=== PATIENT | female | born 1965 | race Caucasian/White ===

== ENCOUNTER 2019-02-13 16:28 | Inpatient (IN) ==
[2019-02-13] MEDS ORDERED: NARCAN ONE ×2 (16:53→17:12)
[2019-02-13] MEDS ORDERED: NS 1,000 ML ONE ×2 (17:00→17:21)
[2019-02-13] MEDS ORDERED: ROMAZICON ONE (17:01)
[2019-02-13] MEDS ORDERED: DOPAMINE 800 MG/D5W 800 MG/500 ML IV.SOLN ONE (17:11)
[2019-02-13 17:16] LABS: HEMATOCRIT 36.4 % (37.0-47.0); HEMOGLOBIN 12.5 g/dL (12.0-16.0); MCV 87.3 FL (81-99); RBC 4.17 XMIL (4.2-5.4); WBC 16.98 X1000 (4.8-10.8)
[2019-02-13 17:17] LABS: BASO# 0.04 X1000 (0.0-0.2); BASO% 0.2 % (0.0-0.8); EOS# 0.06 X1000 (0.0-0.7); EOS% 0.4 % (0.0-10.0); IMM GRAN# 0.13 X1000 (0.0-0.04); IMM GRAN% 0.8 % (0.0-0.5); LYMPH# 2.96 X1000 (1.2-3.4); LYMPH% 17.4 % (20.5-51.1); MCHC 34.3 g/dL (33-37); MONO# 1.69 X1000 (0.11-0.59); MPV 10.9 FL (7.4-10.4); NEUT% 71.2 % (42.2-75.2); PLT 266 X1000 (130-400); RDW 13.4 % (11.5-14.5)
[2019-02-13] MEDS ORDERED: NARCAN IV ONE ×2 (17:18→17:19)
[2019-02-13] MEDS ORDERED: ROMAZICON IV ONE (17:19)
[2019-02-13 17:20] LABS: INR 1.11; PROTIME 14.5 Seconds (11.0-16.0); PTT 28.8 Seconds (22.3-41.8)
[2019-02-13] MEDS ORDERED: NS 1,000 ML IV ONE ×2 (17:20→17:23)
[2019-02-13] MEDS ORDERED: QUELICIN IV ONE (17:24)
[2019-02-13] MEDS ORDERED: AMIDATE IV ONE (17:25)
[2019-02-13 17:29] LABS: ALLEN TEST NO; BE 2.3 mmoll (-3.0-3.0); BLOOD TYPE ARTERIAL; HCO3-(ACT) 26.6 mmoll (20.0-26.0); O2(CT) 14.3 mL/dL (15.0-23.0); O2HB 93.1 % (95.0-99.0); PCO2(98.6) 38 mmHg (35-45); PO2(98.6) 70 mmHg (60-100); SAMPLE BLOOD; SAO2 93.9 % (95.0-100.0); THB 10.9 g/dL (11.5-17.4); pH(98.6) 7.45 (7.35-7.45)
[2019-02-13] MEDS ORDERED: QUELICIN ONE (17:30)
[2019-02-13] MEDS ORDERED: AMIDATE ONE (17:30)
[2019-02-13] MEDS ORDERED: DOPAMINE 800 MG/D5W 800 MG/500 ML IV.SOLN IV SCH ×2 (17:30→23:15)
[2019-02-13 17:33] LABS: MODALITY NRB
--- NOTE | 2019-02-13 17:33 | Diag Imaging Result Doc PS360 ---
EXAM: CHEST-PORTABLE INDICATION: ams, cyanosis TECHNIQUE: One view COMPARISON: 11/08/2018 FINDINGS: There are diffuse airspace infiltrates bilaterally suggesting edema and possibly ARDS. There is no discrete pleural fluid collection or pneumothorax. Cardiac silhouette is grossly unremarkable as imaged. IMPRESSION: Diffuse infiltrates bilaterally suggesting pulmonary edema. ARDS cannot be excluded. Electronically signed by Carl Campos 02/13/2019 5:31 PM
[2019-02-13] MEDS ORDERED: VERSED IV ONE ×3 (17:37→19:57)
[2019-02-13] MEDS ORDERED: VANCOMYCIN 1 GM/NS 1 GM/250 ML IVPB IV ONE (17:40)
[2019-02-13] MEDS ORDERED: MAXIPIME 2 GM/NS 2 GM/100 ML IVPB IV ONE (17:41)
[2019-02-13 17:44] LABS: ALB/GLOB RATIO 1.4; CALCIUM 8.4 mg/dL (8.8-10.2); TOTAL BILIRUBIN 0.57 mg/dL (0.20-1.00); TOTAL PROTEIN 6.8 g/dL (6.3-8.3)
[2019-02-13] MEDS ORDERED: VERSED ONE ×2 (17:45→18:31)
[2019-02-13] MEDS ORDERED: VERSED 100 MG in NS 80 ML IV SCH ×2 (17:45→18:00)
[2019-02-13 17:46] LABS: POTASSIUM 2.4 mmol/L (3.5-5.1)
[2019-02-13] MEDS ORDERED: NS + KCL 20 MEQ 1,000 ML IV ONE ×2 (17:50→17:53)
[2019-02-13] MEDS ORDERED: LEVOPHED 8 MG in D5 1/2 NS 250 ML IV SCH (18:00)
--- NOTE | 2019-02-13 18:03 | PROVIDER DOCUMENTATION ---
This chart was entered by Virginia Lynn Scribe, acting as scribe for Juan Carlos Lackey MD. HPI-Psychological Disorder - General Source: patient, EMS, RN notes reviewed - History of Present Illness-Psych Onset/Duration: reports: just prior to arrival Timing: reports: still present Severity: reports: moderate Situational problems related to:: reports: N/A Psychiatric Complaints: reports: paranoid Substance Use: reports: amphetamines (meth) Previous psych related hospitalizations?: Yes Patient arrived by:: EMS called by spouse/family Similar Symptoms Previously?: Yes Recently seen or treated by another doctor?: No <Juan Carlos Lackey - Last Filed: 02/13/19 18:51> <Kip Cabrera - Last Filed: 02/13/19 20:39> - General Chief Complaint: Altered Mental Status Stated Complaint: FALL/PSYCH Time Seen by Provider: 02/13/19 16:45 Allergies/Adverse Reactions: Patient Allergies Allergy/AdvReac Type Severity Reaction Status Date / Time No Known Allergies Allergy Verified 02/13/19 19:52 Home Medications: Home Medication List Medication Instructions Recorded Confirmed Last Taken Type Unobtainable [Home Meds 02/13/19 02/13/19 Unknown History Unobtainable] - History of Present Illness-Psych Nature of Presenting Problem: 53 y/o female presents to ED for psych eval. Pt was sent to ED via EMS from urgent care after describing her paranoia to the staff there. Pt was placed in the psych pod upon ED arrival and fell while in the bathroom. Nursing staff reports she had snoring respirations, skin turned blue, and she was incontinent of urine. O2 sats were in the 50s upon movement to the trauma room. Sats improved to low 90s on nonrebreather. Pt given 2 of Narcan in room. Pt states she relapsed today and admits to methamphetamine use. Pt is alert and talking. (Juan Carlos Lackey) Review of Systems - Adult - REVIEW OF SYSTEMS - ADULT Constitutional: denies: chills, fever Eyes: reports: no symptoms reported Ears, Nose, Mouth & Throat: reports: no symptoms reported Cardiovascular: denies: chest pain, palpitations Respiratory: reports: see HPI, other (snoring respirations) Gastrointestinal: reports: no symptoms reported Genitourinary: reports: no symptoms reported Musculoskeletal: reports: no symptoms reported Integumentary: reports: no symptoms reported Neurological: reports: no symptoms reported Psychiatric: reports: other (paranoia). denies: suicidal thoughts Endocrine: reports: no symptoms reported Hematologic/Lymphatic: reports: no symptoms reported Allergic/Immunologic: reports: no symptoms reported All Other Systems: Reviewed and Negative <Juan Carlos Lackey - Last Filed: 02/13/19 18:51> Past History - Adult - PAST MEDICAL HISTORY-ADULT Review of Records: reports: Old Records Reviewed, Nursing Assessment Review, Medications Reviewed Major Childhood Illnesses: reports: denies history Cardiovascular: reports: HTN, hyperlipidemia Respiratory: reports: COPD Gastrointestinal: reports: GERD, hepatitis (C) Obstetrical/Gynecological: reports: PID/STD, other (hx of tubal ligation and cervical ablation) Genitourinary: reports: retention Musculoskeletal: reports: arthritis, chronic pain Neurological: reports: CVA, Seizures/Epilepsy Psychiatric: reports: anxiety, bipolar, depression, psychiatric problems, other (panic attacks) Endocrine/Immune: reports: RA Other Conditions: reports: denies history - PRIOR SURGERIES/PROCEDURES Surgical/Procedure History: reports: BTL, other (cervical dysplasia; wisdom teeth extractions) - PRIOR HOSPITALIZATIONS Prior Hospitalizations: reports: for other non-related - IMMUNIZATION STATUS Childhood Immunizations: See Nurse Assessment Flu Vaccine: See Nurse Assessment - FAMILY HISTORY Family History: reviewed, not pertinent - SOCIAL HISTORY Smoking: less than 1 pack/day Provider spent 3-5 mins advising pt. on dangers of tobacco.: Discussed manners to quit use, and f/u contacts for add'l counseling. Substance Use: amphetamines (meth) Alcohol Use Frequency: every day Number of drinks per typical drinking period:: 3-4 drinks Living Situation: family <Juan Carlos Lackey - Last Filed: 02/13/19 18:51> Physical Exam-Psych Focus - Physical Exam-Psych Initial Vital Signs Reviewed: Yes (O2 sats in the 50s initially; improved to low 90s on nonrebreather) Appearance: no apparent distress, no memory impairment, alert Neurological: normal mood/affect, calm Behavior/Eye Contact/Speech: good eye contact Thoughts/Hallucinations: normal thought pattern, no apparent hallucination HENMT: normocephalic/atraumatic, moist mucous membranes Respiratory: lungs clear, normal breath sounds Cardiovascular: normal peripheral pulses, regular rate, rhythm Extremity: normal range of motion, non-tender Integumentary: normal color, warm/dry <Juan Carlos Lackey - Last Filed: 02/13/19 18:51> Progress - PLAN OF CARE/RESULTS Result Diagrams: 02/13/19 16:47 02/13/19 16:47 - EKG 1 Time of EKG reading by physician:: 16:53 EKG Read and Signed by:: Juan Carlos Lackey EKG Interpretation (*Must complete 3 of following elements*): Normal Rate: 74 Rhythm: NSR [place]: normal QRS: normal SD Interval: normal ST Wave: normal - XRAY 1 XRAY Study: Chest Impression: See EMR Report - CT/MRI 1 CT Study: Cervical Spine, Head Impression: See EMR Report - CHANGE OF SHIFT REPORT (ED Provider) 1 Report Given and Care Transferred to:: Dr Cabrera Time of Transfer: 19:00 Items Pending: Labs, CT/MRI Results <Juan Carlos Lackey - Last Filed: 02/13/19 18:51> - PLAN OF CARE/RESULTS Result Diagrams: 02/13/19 16:47 02/13/19 16:47 - CONSULTS/PCP/HOSPITALIST Notification #1 *Consult/PCP/Hospitalist*: Jim Time Discussed: 20:30 Consult Disposition: Will see in ED, Admit <Kip Cabrera - Last Filed: 02/13/19 20:39> - PLAN OF CARE/RESULTS Progress/Plan/Lab Results: Vital Signs - 8 hr 02/13/19 16:42 02/13/19 17:01 02/13/19 17:25 Temperature 97.2 F L Pulse Rate 78 69 79 Respiratory Rate 20 30 H 29 H Blood Pressure 125/63 78/54 82/46 O2 Sat by Pulse Oximetry 97 87 L 84 L 02/13/19 17:30 02/13/19 17:45 02/13/19 17:52 Temperature Pulse Rate 92 H 99 H Respiratory Rate 26 H 31 H Blood Pressure 119/61 118/52 O2 Sat by Pulse Oximetry 90 L 93 L 93 L 02/13/19 18:00 Temperature Pulse Rate 94 H Respiratory Rate 19 Blood Pressure 113/53 O2 Sat by Pulse Oximetry 91 L Laboratory Results - last 24 hr 02/13/19 02/13/19 02/13/19 16:47 16:47 16:47 WBC 16.98 H RBC 4.17 L Hgb 12.5 Hct 36.4 L MCV 87.3 MCH 30.0 MCHC 34.3 RDW Std Deviation 13.4 Plt Count 266 MPV 10.9 H Immature Gran % (Auto) 0.8 H Neut % (Auto) 71.2 Lymph % (Auto) 17.4 L Alexander % (Auto) 10.0 H Eos % (Auto) 0.4 Baso % (Auto) 0.2 Immature Gran # (Auto) 0.13 H Neut # (Auto) 12.10 H Lymph # (Auto) 2.96 Alexander # (Auto) 1.69 H Eos # (Auto) 0.06 Baso # (Auto) 0.04 PT INR PTT (Actin FS) Specimen Type Sample Site pH pCO2 pO2 HCO3 Base Excess Oxyhemoglobin ABG O2 Sat (Calculated) ABG O2 Saturation ABG Carboxyhemoglobin ABG Methemoglobin Angel Test A-a O2 Difference Total Hemoglobin Lactate Liter Flow Blood Gas Modality FiO2 % Sodium 129 L Potassium 2.4 L* Chloride 82 L Carbon Dioxide 24 L Anion Gap 23 BUN 23 H Creatinine 2.0 H Estimated GFR/1.73 m2 26 BUN/Creatinine Ratio 12 Glucose 175 H POC Glucose Calculated Osmolality 267 Calcium 8.4 L Phosphorus Magnesium Total Bilirubin 0.57 AST 59 H ALT 55 H Alkaline Phosphatase 108 H Creatine Kinase 374 H Creatine Kinase Index 1.9 CK-MB (CK-2) 7.23 H Troponin T Sgk-[id number]-Tcazyajifrz Pept Total Protein 6.8 Albumin 4.0 Globulin 2.8 Albumin/Globulin Ratio 1.4 Plasma Lactate Plasma/Serum Ethyl Alc 02/13/19 02/13/19 02/13/19 16:47 16:47 16:47 WBC RBC Hgb Hct MCV MCH MCHC RDW Std Deviation Plt Count MPV Immature Gran % (Auto) Neut % (Auto) Lymph % (Auto) Alexander % (Auto) Eos % (Auto) Baso % (Auto) Immature Gran # (Auto) Neut # (Auto) Lymph # (Auto) Alexander # (Auto) Eos # (Auto) Baso # (Auto) PT 14.5 INR 1.11 PTT (Actin FS) 28.8 Specimen Type Sample Site pH pCO2 pO2 HCO3 Base Excess Oxyhemoglobin ABG O2 Sat (Calculated) ABG O2 Saturation ABG Carboxyhemoglobin ABG Methemoglobin Angel Test A-a O2 Difference Total Hemoglobin Lactate Liter Flow Blood Gas Modality FiO2 % Sodium Potassium Chloride Carbon Dioxide Anion Gap BUN Creatinine Estimated GFR/1.73 m2 BUN/Creatinine Ratio Glucose POC Glucose Calculated Osmolality Calcium Phosphorus Magnesium Total Bilirubin AST ALT Alkaline Phosphatase Creatine Kinase Creatine Kinase Index CK-MB (CK-2) Troponin T 0.050 Egy-U-Ddmtzdjysjw Pept 28091 H Total Protein Albumin Globulin Albumin/Globulin Ratio Plasma Lactate Plasma/Serum Ethyl Alc 02/13/19 02/13/19 02/13/19 16:47 16:55 17:10 WBC RBC Hgb Hct MCV MCH MCHC RDW Std Deviation Plt Count MPV Immature Gran % (Auto) Neut % (Auto) Lymph % (Auto) Alexander % (Auto) Eos % (Auto) Baso % (Auto) Immature Gran # (Auto) Neut # (Auto) Lymph # (Auto) Alexander # (Auto) Eos # (Auto) Baso # (Auto) PT INR PTT (Actin FS) Specimen Type Sample Site pH pCO2 pO2 HCO3 Base Excess Oxyhemoglobin ABG O2 Sat (Calculated) ABG O2 Saturation ABG Carboxyhemoglobin ABG Methemoglobin Angel Test A-a O2 Difference Total Hemoglobin Lactate Liter Flow Blood Gas Modality FiO2 % Sodium Potassium Chloride Carbon Dioxide Anion Gap BUN Creatinine Estimated GFR/1.73 m2 BUN/Creatinine Ratio Glucose POC Glucose 188 H D Calculated Osmolality Calcium Phosphorus 3.5 Magnesium 2.5 Total Bilirubin AST ALT Alkaline Phosphatase Creatine Kinase Creatine Kinase Index CK-MB (CK-2) Troponin T Kkw-Z-Ahgawqvmkqv Pept Total Protein Albumin Globulin Albumin/Globulin Ratio Plasma Lactate 6.9 H* Plasma/Serum Ethyl Alc 02/13/19 17:15 WBC RBC Hgb Hct MCV MCH MCHC RDW Std Deviation Plt Count MPV Immature Gran % (Auto) Neut % (Auto) Lymph % (Auto) Alexander % (Auto) Eos % (Auto) Baso % (Auto) Immature Gran # (Auto) Neut # (Auto) Lymph # (Auto) Alexander # (Auto) Eos # (Auto) Baso # (Auto) PT INR PTT (Actin FS) Specimen Type ARTERIAL Sample Site L BRACHIAL pH 7.45 pCO2 38 pO2 70 HCO3 26.6 H Base Excess 2.3 Oxyhemoglobin 93.1 L ABG O2 Sat (Calculated) 14.3 L ABG O2 Saturation 93.9 L ABG Carboxyhemoglobin 0.80 ABG Methemoglobin 0.0 Angel Test NO A-a O2 Difference 596.0 Total Hemoglobin 10.9 L Lactate 5.00 H* Liter Flow 15.0 Blood Gas Modality NRB FiO2 % 100.0 Sodium Potassium Chloride Carbon Dioxide Anion Gap BUN Creatinine Estimated GFR/1.73 m2 BUN/Creatinine Ratio Glucose POC Glucose Calculated Osmolality Calcium Phosphorus Magnesium Total Bilirubin AST ALT Alkaline Phosphatase Creatine Kinase Creatine Kinase Index CK-MB (CK-2) Troponin T Ozu-I-Ctvkfuekijj Pept Total Protein Albumin Globulin Albumin/Globulin Ratio Plasma Lactate Plasma/Serum Ethyl Alc Orders Category Date Time Status Cardiac Monitoring DIRECTED Care 02/13/19 16:54 Active Finger Stick Blood Sugar (ED) DIRECTED Care 02/13/19 16:54 Active Lopez Cath Insertion ORDERED Care 02/13/19 18:40 Active IV Insertion ORDERED Care 02/13/19 18:07 Active Notify MD of + Sepsis Screen NOW Care 02/13/19 18:07 Active Notify Physician As Ordered Care 02/13/19 18:07 Active Oxygen Therapy- ED Nursing DIRECTED Care 02/13/19 16:54 Active Saline Loc NOW Care 02/13/19 16:54 Active CHEST-PORTABLE [RAD] Stat Exams 02/13/19 16:54 Completed CHEST-PORTABLE [RAD] Stat Exams 02/13/19 17:[address] HEAD/C-SPINE W/O CONTRAST [CT] Stat Exams 02/13/19 16:58 Completed ABG [RESP] Routine Lab 02/13/19 17:15 Completed ALCOHOL BLOOD Stat Lab 02/13/19 16:47 Completed BLOOD CULTURE [BLDCUL] Stat Lab 02/13/19 17:55 Results CBC WITH ELECTRONIC DIFF [HEME] Stat Lab 02/13/19 16:47 Completed CK PROFILE [SP CHEM] Stat Lab 02/13/19 16:47 Completed COMPREHENSIVE METABOLIC PANEL [CHEM] Stat Lab 02/13/19 16:47 Completed LACTATE, PLASMA [CHEM] Lab 02/13/19 20:00 Uncollected LACTATE, PLASMA [CHEM] Lab 02/13/19 23:00 Uncollected LACTATE, PLASMA [CHEM] Stat Lab 02/13/19 17:10 Completed MAGNESIUM [CHEM] Stat Lab 02/13/19 16:47 Completed PRO B-NATRIURETIC PEPTIDE Stat Lab 02/13/19 16:47 Completed PROTIME WITH INR [COAG] Stat Lab 02/13/19 16:47 Completed PTT [COAG] Stat Lab 02/13/19 16:47 Completed TROPONIN T Stat Lab 02/13/19 16:47 Completed URINALYSIS [URINALYSIS] Stat Lab 02/13/19 20:30 Ordered URINE DRUG SCREEN Stat Lab 02/13/19 20:30 Ordered phos [PHOSPHORUS] [CHEM] Stat Lab 02/13/19 16:47 Completed 0.9% Sodium Chloride Inj [Ns] 1,000 ml Med 02/13/19 17:00 Discontinued .ROUTE As directed 0.9% Sodium Chloride Inj [Ns] 1,000 ml Med 02/13/19 17:21 Discontinued .ROUTE As directed 0.9% Sodium Chloride Inj [Ns] 1,000 ml Med 02/13/19 17:20 Discontinued IV 999 mls/hr 0.9% Sodium Chloride Inj [Ns] 1,000 ml Med 02/13/19 17:23 Discontinued IV 999 mls/hr 0.9% Sodium Chloride Inj [Ns] 80 ml Med 02/13/19 18:00 Active Midazolam [Versed] 100 mg IV As Directed mls/hr CefEPIME 2 GM/NS [Maxipime 2 gm/Ns] Med 02/13/19 17:41 Discontinued 2 gm in 100 ml IV NOW Dextrose 5%-0.45% NaCl Inj [D5 1/2 Ns] 250 ml Med 02/13/19 18:00 Discontinued Norepinephrine [Levophed] 8 mg IV As Directed mls/hr Dopamine 800 mg/D5w Med 02/13/19 17:11 Discontinued 800 mg in 500 ml .ROUTE As directed Dopamine 800 mg/D5w Med 02/13/19 17:30 Active 800 mg in 500 ml IV As Directed mls/hr Etomidate [Amidate] Med 02/13/19 17:25 Discontinued 20 mg IV NOW ONE Etomidate [Amidate] Med 02/13/19 17:30 Discontinued 40 mg .ROUTE .STK-MED ONE Flumazenil [Romazicon] Med 02/13/19 17:19 Discontinued 0.2 mg IV NOW ONE Flumazenil [Romazicon] Med 02/13/19 17:01 Discontinued 0.5 mg .ROUTE .STK-MED ONE Midazolam [Versed] Med 02/13/19 17:37 Discontinued 2 mg IV NOW ONE Midazolam [Versed] Med 02/13/19 19:57 Discontinued 2 mg IV NOW ONE Midazolam [Versed] Med 02/13/19 17:37 Discontinued 3 mg IV NOW ONE Midazolam [Versed] Med 02/13/19 17:45 Discontinued 5 mg .ROUTE .STK-MED ONE Midazolam [Versed] Med 02/13/19 18:31 Discontinued 5 mg .ROUTE .STK-MED ONE Naloxone [Narcan] Med 02/13/19 17:19 Discontinued 1 mg IV NOW ONE Naloxone [Narcan] Med 02/13/19 16:53 Discontinued 2 mg .ROUTE .STK-MED ONE Naloxone [Narcan] Med 02/13/19 17:12 Discontinued 2 mg .ROUTE .STK-MED ONE Naloxone [Narcan] Med 02/13/19 17:18 Discontinued 2 mg IV NOW ONE Ns + KCl 20 Meq 1,000 ml Med 02/13/19 17:50 Discontinued IV 500 mls/hr Ns + KCl 20 Meq 1,000 ml Med 02/13/19 17:53 Discontinued IV 500 mls/hr Succinylcholine [Quelicin] Med 02/13/19 17:24 Discontinued 100 mg IV NOW ONE Succinylcholine [Quelicin] Med 02/13/19 17:30 Discontinued 200 mg .ROUTE .STK-MED ONE Vancomycin 1 gm/Ns Med 02/13/19 17:40 Discontinued 1 gm in 250 ml IV NOW Altered Mental Status Stat Oth 02/13/19 16:52 Ordered CP/SOB/Palp >45 yrs of Age Stat Oth 02/13/19 16:52 Ordered Ventilator Order Stat Oth 02/13/19 17:54 Active EKG [EKG] Stat Ther 02/13/19 16:54 Ordered Procedures - INTUBATION Time of Intubation: 17:31 (Pt intubated by Dr. Tabor. O2 sats improved to mid 90s.) Mallampati Class: 1 Intubation Method: orotracheal Equipment: ETT, Glidescope Tube Size (cm): 7.5 Pretreated with 100% Oxygen?: Yes Breath Sounds after Intubation: equal ETT Primary Tube Confirmation: Capnometry CO2 Change, Direct Visualization, Chest Rise and Fall, Tube placement verified on XRAY Intubation Complications: no complications Vent Settings: See Respiratory Therapy Notes Procedure Comment: 20 of etomidate at 1729. 100 of succ at 1731. 21 at the lip. <Juan Carlos Lackey - Last Filed: 02/13/19 18:51> Departure - Departure Date of Disposition Decision: 02/13/19 Certified Medical Emergency: Emergent - Critical Care Note This patient required my direct & personal management of CC.: Yes Total Time (mins): 60 Critical Care Statement: This patient required my direct personal management to treat or rule out processes, the absence of which, could potentiallly result in sudden, clinically significant life or limb threatening deterioration. <Juan Carlos Lackey - Last Filed: 02/13/19 18:51> - Departure Time of Disposition Decision: 15:00 <Kip Cabrera - Last Filed: 02/13/19 20:39> - Departure DIAGNOSIS: ARDS (adult respiratory distress syndrome), CHF (congestive heart failure), Sepsis, Hyponatremia, Renal insufficiency, Hypokalemia Disposition: ADMITTED INPATIENT 09 Condition: Serious Discharge Education: Steps to Quit Smoking, [id number]-je-Zrvg, Finding Treatment for Addiction, Stimulant Use Disorder-Methamphetamines Attestation - Physician/ [place] Attestation Patient care was provided by Advanced Practice Provider:: No The physician spent face to face time with patient:: Yes Advanced Practice Provider documentation review:: Supervising physician onsite and consulted in the evaluation and care of this patient. The physician did have a face to face encounter with the patient. <Juan Carlos Lackey - Last Filed: 02/13/19 18:51> This chart was documented by the indicated scribe, (Virginia Lynn Scribe) and accurately reflects the services I performed and decisions made by me, Juan Carlos Lackey MD, as attested by the provider's signature.
[2019-02-13 18:04] LABS: CK INDEX 1.9 (0.0-2.5); CK-MB 7.23 ng/mL (0.0-5.0)
--- NOTE | 2019-02-13 19:08 | Diag Imaging Result Doc PS360 ---
EXAM: CT HEAD/C-SPINE W/O CONTRAST INDICATION: fall, AMS TECHNIQUE: This exam was performed using automated exposure control, adjustment of mA or kV according to patient size, and/or use of iterative reconstruction technique. COMPARISON: CT head dated 10/16/2017 FINDINGS: Head: There is no definite acute infarct given the limited sensitivity of CT versus MRI. There is no discrete intracranial mass, mass effect, or intracranial hemorrhage. The surrounding soft tissues are essentially unremarkable. The calvaria is intact. C-spine: There is fairly advanced degenerative disc disease at C5-6 and C6-7 and milder degenerative disc disease at a couple of other cervical levels. There is also facet arthropathy at several levels, most significant at C2-3 and C3-4 on the left. This causing varying degrees of neuroforaminal narrowing and milder central canal narrowing at several levels. Otherwise, there is no discrete fracture, subluxation, or intrinsic osseous lesion. There are dense infiltrates seen at the lung apices. Consider severe edema or ARDS. The patient is intubated. Surrounding soft tissues are essentially unremarkable, otherwise. IMPRESSION: 1.No evidence of acute intracranial pathology. 2.Multilevel degenerative arthropathy but no evidence of fracture or other definite acute C-spine injury. 3.Severe airspace infiltrates at the lung apices as described. Electronically signed by Carl Campos 02/13/2019 7:06 PM
--- NOTE | 2019-02-13 19:14 | Diag Imaging Result Doc PS360 ---
EXAM: CHEST-PORTABLE INDICATION: post intubation TECHNIQUE: One view COMPARISON: 02/13/2019 FINDINGS: There has been interval intubation. The tip of the ET tube projects over the trachea and above the amie at about the T4 level. Diffuse bilateral airspace infiltrates are essentially unchanged. Cardiac silhouette is stable. IMPRESSION: Interval intubation as described. Stable chest, otherwise. Electronically signed by Carl Campos 02/13/2019 7:12 PM
[2019-02-13 19:55] LABS: MAGNESIUM 2.5 mg/dL (1.5-2.7); PHOSPHORUS 3.5 mg/dL (2.7-4.5)
[2019-02-13 20:47] LABS: URINE SOURCE CLEAN CATCH
[2019-02-13 20:54] LABS: BILIRUBIN URINE NEGATIVE (NEGATIVE); BLOOD URINE NEGATIVE (NEGATIVE); COLOR YELLOW; GLUCOSE URINE NEGATIVE (NEGATIVE); KETONE URINE NEGATIVE (NEGATIVE); LEUKOCYTES URINE NEGATIVE (NEGATIVE); NITRITE URINE NEGATIVE (NEGATIVE); PROTEIN URINE 30 mg/dL (NEGATIVE); SP GRAVITY URINE 1.007; TURBIDITY URINE HAZY (CLEAR); UROBILINOGEN URINE NORMAL (NORMAL)
[2019-02-13 20:55] LABS: UR EPITHELIAL CELLS <10 /HPF (<10); URINE BACTERIA NEGATIVE /HPF; URINE RBC <10 /HPF (<10); URINE WBC <10 /HPF (<10)
[2019-02-13 21:05] LABS: UR AMPHETAMINES QUAL PRESUMPTIVE POSITIVE (NONE DETECT); UR BARBITUATES QUAL NONE DETECTED (NONE DETECT); UR BENZODIAZEPIN QUAL PRESUMPTIVE POSITIVE (NONE DETECT); UR CANNABINOIDS QUAL NONE DETECTED (NONE DETECT); UR COCAINE QUAL NONE DETECTED (NONE DETECT); UR METHADONE QUAL NONE DETECTED (NONE DETECT); UR OPIATES QUAL NONE DETECTED (NONE DETECT); UR OXYCODONE QUAL NONE DETECTED (NONE DETECT); UR PCP QUAL NONE DETECTED (NONE DETECT)
[2019-02-13] MEDS ORDERED: ZOFRAN IV PRN (22:24)
--- NOTE | 2019-02-13 23:44 | HISTORY AND PHYSICAL ---
PRIMARY CARE PHYSICIAN: Unknown. CHIEF COMPLAINT: Altered mental status. HISTORY OF PRESENTING ILLNESS: This is a 53-year-old female with a history of bipolar disorder, opioid abuse, benzodiazepine abuse, ADD, who had presented to emergency department due to patient having some paranoid delusions. The patient initially was seen in the ER and while she was being evaluated she started having decreasing respirations and became cyanotic. She was rapidly intubated and she will require admission for further management. There was no family around and most of the history is obtained from the ER charting and previous records. PAST MEDICAL HISTORY: Include bipolar disorder, opioid abuse, benzodiazepine abuse, ADD. PAST SURGICAL HISTORY: None. ALLERGIES: No known drug allergies. CURRENT MEDICATIONS: Unknown. SOCIAL HISTORY: A pack per day smoking. No history of alcohol use. History of opioids and benzodiazepine abuse. FAMILY HISTORY: No history of coronary artery disease. REVIEW OF SYSTEMS: Unable to obtain. PHYSICAL EXAMINATION: GENERAL: The patient is currently intubated and on a ventilator. VITAL SIGNS: Temperature 97.2 degrees, pulse 69, respiration 30, blood pressure was 78/54. HEENT: Atraumatic, normocephalic. NECK: No masses. CHEST: Rhonchi. CARDIOVASCULAR: Regular rate and rhythm. ABDOMEN: Soft, positive bowel sounds. EXTREMITIES: Trace edema. NEUROLOGIC: She is sedated. GENITOURINARY: No bladder distention. SKIN: Warm. LABORATORIES AND STUDIES: WBC 16.98, hemoglobin 12.5, hematocrit 36.4, platelets 266,000. PH is 7.45. Sodium 129, potassium 2.4, chloride 82, CO2 is 24, BUN is 23, creatinine is 2.0, glucose is 188. Toxicology shows positive for amphetamines and benzodiazepines. Chest x-ray, stable chest. ASSESSMENT: A 53-year-old female with a history of bipolar disorder and history of benzodiazepine and opiate abuse who had presented to the emergency department due to patient having paranoid delusions. While she was being evaluated she started having decreased respirations and became cyanotic. She was rapidly intubated and she will require admission for further management. 1. Altered mental status, multifactorial. 2. Bipolar disorder. 3. History of drug abuse with current urinary drug screen showing amphetamines and benzodiazepines. 4. Acute respiratory failure. 5. Hypokalemia. 6. Acute kidney injury. 7. Probable sepsis. PLAN: 1. We will admit patient to ICU. 2. Continue with neuro checks. 3. Continue with ventilator support. 4. We will replace her potassium. 5. We will monitor her renal function closely. 6. We will check blood cultures and urine cultures and start patient on IV antibiotics. 7. We will put patient on DVT prophylaxis with SCDs. 8. We will continue to follow, and reassess and make further recommendations based on patient's clinical course. Patient's condition is guarded. cc: Abdiel Fernandez MD
[2019-02-14] MEDS: POTASSIUM CHLORIDE 20 MEQ/SWI 20 MEQ/100 ML IVPB IV SCH ×2 (00:02→02:01)
[2019-02-14] MEDS: ZOSYN 3.375 GM in NS 50 ML IV SCH ×5 (00:03→21:50)
[2019-02-14] MEDS: NS 1,000 ML IV SCH ×2 (00:03→09:44)
[2019-02-14 04:22] LABS: URINE SOURCE CATH
[2019-02-14 04:26] LABS: ALLEN TEST YES; BE 5.3 mmoll (-3.0-3.0); BLOOD TYPE ARTERIAL; HCO3-(ACT) 28.9 mmoll (20.0-26.0); METHB 0.3 % (0.0-1.5); O2(CT) 13.8 mL/dL (15.0-23.0); O2HB 90.8 % (95.0-99.0); PCO2(98.6) 43 mmHg (35-45); PO2(98.6) 58 mmHg (60-100); SAMPLE BLOOD; SAO2 91.3 % (95.0-100.0); SRATE 18 BPM; THB 10.8 g/dL (11.5-17.4); TVOL 500 mL; pH(98.6) 7.45 (7.35-7.45)
[2019-02-14 04:28] LABS: MODALITY VENTILATOR
[2019-02-14 04:28] LABS: BILIRUBIN URINE NEGATIVE (NEGATIVE); BLOOD URINE TRACE (NEGATIVE); COLOR YELLOW; GLUCOSE URINE NEGATIVE (NEGATIVE); KETONE URINE NEGATIVE (NEGATIVE); LEUKOCYTES URINE NEGATIVE (NEGATIVE); NITRITE URINE NEGATIVE (NEGATIVE); PROTEIN URINE TRACE mg/dL (NEGATIVE); SP GRAVITY URINE 1.013; TURBIDITY URINE CLEAR (CLEAR); UR EPITHELIAL CELLS <10 /HPF (<10); URINE BACTERIA NEGATIVE /HPF; URINE RBC <10 /HPF (<10); URINE WBC <10 /HPF (<10); UROBILINOGEN URINE NORMAL (NORMAL)
[2019-02-14 06:24] LABS: BASO# 0.03 X1000 (0.0-0.2); BASO% 0.2 % (0.0-0.8); EOS# 0.25 X1000 (0.0-0.7); EOS% 1.6 % (0.0-10.0); HEMATOCRIT 34.4 % (37.0-47.0); HEMOGLOBIN 11.9 g/dL (12.0-16.0); IMM GRAN# 0.04 X1000 (0.0-0.04); IMM GRAN% 0.3 % (0.0-0.5); LYMPH# 1.71 X1000 (1.2-3.4); LYMPH% 11.3 % (20.5-51.1); MCH 29.8 PG (27-31); MCHC 34.6 g/dL (33-37); MCV 86.2 FL (81-99); MONO# 0.76 X1000 (0.11-0.59); MPV 11.4 FL (7.4-10.4); NEUT# 12.37 X1000 (1.4-6.5); NEUT% 81.6 % (42.2-75.2); PLT 239 X1000 (130-400); RBC 3.99 XMIL (4.2-5.4); RDW 13.1 % (11.5-14.5); WBC 15.16 X1000 (4.8-10.8)
[2019-02-14 06:50] LABS: AGAP 14; BUN 19 mg/dL (8-22); CALCIUM 7.8 mg/dL (8.8-10.2); CHLORIDE 96 mmol/L (98-107); COSMO 275; CREATININE 0.9 mg/dL (0.5-0.9); ESTIMATED GFR > 60; GLUCOSE 120 mg/dL (70-104); POTASSIUM 3.1 mmol/L (3.5-5.1); SODIUM 136 mmol/L (136-145); TCO2 26 mmol/L (25-35)
--- NOTE | 2019-02-14 07:31 | Diag Imaging Result Doc PS360 ---
EXAM: CHEST-PORTABLE INDICATION: vent TECHNIQUE: One view COMPARISON: 02/13/2019 FINDINGS: The ET tube is in stable position. Very dense bilateral infiltrates throughout both lungs are again identified. They appear to increased somewhat in density at the lower lung zones as compared to the previous study. No other new consolidation is appreciated. Cardiac silhouette is stable. IMPRESSION: Interval worsening of severe diffuse infiltrates bilaterally. Electronically signed by Carl Campos 02/14/2019 7:28 AM
[2019-02-14] MEDS: VERSED 100 MG in NS 80 ML IV SCH (10:24)
[2019-02-14] MEDS ORDERED: VANCOMYCIN IV PER PHARMACY MISC SCH ×2 (10:30)
[2019-02-14] MEDS ORDERED: LEVOPHED 8 MG in D5 1/2 NS 250 ML IV SCH (10:45)
[2019-02-14] MEDS: PROTONIX IV SCH (11:16)
[2019-02-14] MEDS: SODIUM CHLORIDE 0.9% INJ SCH (11:17)
[2019-02-14] MEDS: LASIX IV SCH ×2 (11:17→22:34)
--- NOTE | 2019-02-14 11:26 | EKG Report ---
Test Performed on : 02/14/2019 11:07:49 AM Test Reason : Baseline heart rhythm Blood Pressure : / mmHG Vent. Rate : 080 BPM Atrial Rate : 080 BPM P-R Int : 128 ms QRS Dur : 086 ms QT Int : 470 ms P-R-T Axes : 025 029 -04 degrees QTc Int : 542 ms Normal sinus rhythm. Prolonged QT Abnormal ECG When compared with ECG of 08-NOV-2018 14:05, (Unconfirmed) T wave inversion now evident in Inferior leads QT has lengthened Confirmed by Dimas MCKEON, Prashant Davison ([id number]) on 02/17/2019 9:27:30 AM
[2019-02-14] MEDS ORDERED: VANCOMYCIN 1,350 MG in NS 250 ML IV ONE (11:30)
--- NOTE | 2019-02-14 12:07 | PROGRESS NOTE ---
DATE: 02/14/2019 INTERVAL HISTORY: Ms. Mendez was admitted for acute encephalopathy and acute hypoxic respiratory failure. She was intubated overnight. No other acute events overnight. She continues to have fever, hypoxia, electrolyte abnormality. SUBJECTIVE: She is intubated on midazolam drip, not responding. However, she does start flickering to strong verbal stimuli. VITALS: Currently temperature of 100.2 degrees, pulse of 84, respiratory 25, blood pressure 110/69, saturating 95% on mechanical ventilation. PHYSICAL EXAMINATION: General: She does not appear in any acute distress. HEENT: Oral cavity is moist. She has endotracheal tube. She has a urinary catheter. Lungs: She has diffuse rhonchi, inspiratory crackles, and bronchial breath sounds bilateral lung ruggiero. No wheezes. Heart: S1, S2 normal. Not tachycardic. No murmur or gallop. Abdomen: Soft, nontender. Extremities: No lower extremity edema. LABS: Suggestive of leukocytosis, normocytic anemia, normal platelet count, hypoxia, hypokalemia, resolution of acute kidney injury. She also had a transaminitis. MICROBIOLOGY: Blood cultures are in lab. IMAGING: Chest x-ray performed today suggests worsening of the severe diffuse infiltrates bilaterally. ASSESSMENT AND PLAN: 1. Acute hypoxic respiratory failure due to bilateral pneumonia. Follow up sputum culture, blood culture and urine antigen. Add intravenous vancomycin. Continue intravenous Zosyn. Change intravenous pressors to norepinephrine to maintain MAP more than 65 mmHg for her septic shock. Continue mechanical ventilation and sedation as per Pulmonology recommendation. I will give her intravenous Lasix with close input, output, and electrolyte monitoring for her bilateral lung infiltrates and follow up with serial chest x-ray. 2. Acute kidney injury and electrolyte disturbance. Her potassium is currently being repleted. Her acute kidney injury resolved on repeat BMP, and we will closely monitor BMP. 3. History of bipolar mood disorder, history of seizures, history of multi polysubstance abuse. Her urine toxicology was positive for amphetamine and benzodiazepine, and according to ER records, she recently relapsed and used those substances. She would need extensive counseling at the time when she is more awake. 4. Disposition. Patient's condition is critical. More than 30 minutes of critical care time was spent taking care of this patient. Extensively discussed plan of care with the patient's nurse. Pulmonology team has been consulted. I will also follow up with echocardiogram. cc: Patrick Chavarria MD
--- NOTE | 2019-02-14 12:28 | Diag Imaging Result Doc PS360 ---
EXAM: CHEST-PORTABLE INDICATION: OG tube placement TECHNIQUE: One view COMPARISON: 02/14/2019 FINDINGS: The newly placed NG tube projects well below the diaphragm and is assumed to be in the lumen of the stomach in the expected position. The ET tube is in stable position. Dense bilateral diffuse infiltrates are grossly stable. Cardiac silhouette appears to be stable. IMPRESSION: Interval placement of NG tube in the expected position as described. Electronically signed by Carl Campos 02/14/2019 12:25 PM
[2019-02-14] MEDS ORDERED: POTASSIUM CHLORIDE 20% LIQUID PO ONE ×2 (12:30→18:32)
[2019-02-14] MEDS: MORPHINE IV PRN ×2 (14:00→21:50)
--- NOTE | 2019-02-14 16:04 | ECHO REPORT ---
ORDER DATE: 02/14/2019 INTERPRETING PHYSICIAN: Dr. Tha Mckeon ECHOCARDIOGRAPHIC MEASUREMENTS: 1. Interventricular septum: 1.1 cm. 2. Left ventricle posterior wall: 1.0 cm. 3. Diastolic diameter: 3.7 cm. 4. Right ventricle: 4.3 cm. 5. Left atrium: 3.2 cm. SUMMARY OF 2-DIMENSIONAL IMAGIN. Normal left ventricular cavity size. 2. Estimated ejection fraction of 65 %. 3. Aortic valve leaflets are trileaflet. 4. Mitral valve is normal. 5. Tricuspid valve was normal. 6. Pulmonic valve was normal. 7. Right ventricle is dilated with reduced right ventricular systolic function. 8. There is mild tricuspid regurgitation. Peak velocity across the tricuspid valve was 3 m/sec. Pulmonary artery systolic pressure of 46 mmHg. 9. There is grade 1 diastolic dysfunction. There is mild mitral regurgitation. 10. Peak velocity across the aortic valve less than 2 m/sec by Doppler studies. There is no aortic stenosis or regurgitation. 11. There is no pericardial effusion or obvious intracardiac mass or thrombus seen. cc: MD Patrick Duarte MD
[2019-02-14] MEDS: LOVENOX SUBQ SCH (17:51)
--- NOTE | 2019-02-14 17:51 | PROGRESS NOTE ---
DATE: 02/14/2019 I tried to reach out to Ms. Mendez's family. I initially called her , however it went into a voice message. I am not sure whether the voice message was of her , so I did not leave a voice message. Then, I reached out to Ms. Quintana who is listed as primary contact and Ms. Quintana states that she has been lifelong friend of Ms. Mendez and she would contact other family members and Ms. Quintana should be the primary person to be reached out and discuss about the patient's clinical condition. I informed her that Ms. Mendez is in critical condition and she is needing two forms of life support including ventilator and intravenous pressors. I also informed her that she came in yesterday to the emergency room, likely because of paranoid behavior related to recreational substance use and was hypoxic, so she required intubation. She is currently very sick. I answered all of her questions. Ms. Quintana will reach out to other family members of the patient and contact them. cc: Patrick Chavarria MD
[2019-02-14 18:05] LABS: MAGNESIUM 1.8 mg/dL (1.5-2.7); POTASSIUM 3.1 mmol/L (3.5-5.1)
--- NOTE | 2019-02-14 23:22 | CONSULTATION ---
DATE OF CONSULTATION: 02/14/2019 CHIEF COMPLAINT: Altered mental status. HISTORY OF PRESENT ILLNESS: This is a 53-year-old female with a past medical history of CHF, bipolar disorder, opioid abuse and benzodiazepine abuse. Patient was brought to the ER after having paranoid delusions. While in the ER, patient was having decreased respirations and became cyanotic. She was then intubated. Recent chest x-ray revealed bilateral diffuse infiltrates. PAST MEDICAL HISTORY: Bipolar disorder, opioid abuse, benzodiazepine abuse and ADD. PAST SURGICAL HISTORY: None. ALLERGIES: No known drug allergies. SOCIAL HISTORY: Pack per day smoker. No history of alcohol use. Does have a history of opioid and benzodiazepine abuse. FAMILY HISTORY: Noncontributory. REVIEW OF SYSTEMS: A 10-point review of systems was obtained and the pertinent is listed within the HPI, otherwise noncontributory. PHYSICAL EXAMINATION: GENERAL: This is a 53-year-old female resting in bed on mechanical ventilation at the present time. VITAL SIGNS: Blood pressure 110/69, pulse 84, respirations 25, O2 saturation 95% per mechanical ventilation. HEENT: Head is atraumatic, normocephalic. Eyes round and reactive. NECK: Supple. Trachea midline. RESPIRATORY: Decreased breath sounds bilaterally. CARDIOVASCULAR: Regular rate and rhythm. S1, S2 auscultated. No murmurs, gallops or rubs appreciated. ABDOMEN: Soft, positive bowel sounds in all 4 quadrants. NEUROLOGIC: She is sedated. EXTREMITIES: Without clubbing, cyanosis or edema. Plus-2 pedal pulses. DIAGNOSTIC DATA: Mentioned in the HPI. LABORATORY DATA: White blood cells 15.16. Hemoglobin 11.9. Hematocrit 34.4. Platelets 239. PH 7.45. Sodium 136. Potassium 3.1. Chloride 96. CO2 of 43. Glucose 120. ASSESSMENT AND PLAN: 1. Acute respiratory failure. Continue with mechanical ventilatory support. We will continue to monitor with ABGs. 2. Probable pneumonia. Continue IV antibiotics as prescribed. 3. Hypokalemia. Continue to replace with supplementation. We will continue to monitor. 4. Acute kidney injury. We will continue to monitor function closely. 5. Altered mental status. Continue with neuro checks as ordered. 6. Continue deep venous thrombosis prophylaxis with sequential compression devices. 7. Continue gastrointestinal prophylaxis. Thank you for the courtesy of this consult. Dictated by AALIYAH Arguelles for Neena Hernandez MD cc: AALIYAH Arguelles MD
[2019-02-15] MEDS: MORPHINE IV PRN ×4 (02:18→22:12)
[2019-02-15] MEDS: VERSED 100 MG in NS 80 ML IV SCH ×2 (02:24→18:27)
[2019-02-15 04:35] LABS: ALLEN TEST YES; BLOOD TYPE ARTERIAL; HCO3-(ACT) 34.3 mmoll (20.0-26.0); METHB 0.1 % (0.0-1.5); O2(CT) 16.6 mL/dL (15.0-23.0); O2HB 96.2 % (95.0-99.0); PCO2(98.6) 47 mmHg (35-45); PO2(98.6) 89 mmHg (60-100); SAMPLE BLOOD; SAO2 96.3 % (95.0-100.0); SRATE 18 BPM; THB 12.2 g/dL (11.5-17.4); TVOL 500 mL
[2019-02-15 04:36] LABS: MODALITY VENTILATOR
[2019-02-15] MEDS: ZOSYN 3.375 GM in NS 50 ML IV SCH ×4 (05:25→22:11)
[2019-02-15 06:48] LABS: BASO# 0.03 X1000 (0.0-0.2); BASO% 0.2 % (0.0-0.8); EOS# 0.69 X1000 (0.0-0.7); HEMOGLOBIN 11.6 g/dL (12.0-16.0); IMM GRAN# 0.06 X1000 (0.0-0.04); IMM GRAN% 0.4 % (0.0-0.5); LYMPH# 2.02 X1000 (1.2-3.4); LYMPH% 14.7 % (20.5-51.1); MCH 30.2 PG (27-31); MCHC 34.1 g/dL (33-37); MCV 88.5 FL (81-99); MONO# 1.13 X1000 (0.11-0.59); MONO% 8.2 % (1.7-9.3); MPV 11.1 FL (7.4-10.4); NEUT# 9.79 X1000 (1.4-6.5); NEUT% 71.5 % (42.2-75.2); PLT 246 X1000 (130-400); RBC 3.84 XMIL (4.2-5.4); RDW 14.1 % (11.5-14.5); WBC 13.72 X1000 (4.8-10.8)
[2019-02-15 07:04] LABS: AGAP 18; ALB/GLOB RATIO 0.8; ALBUMIN 2.8 g/dL (3.5-5.0); ALKALINE PHOSPHATASE 105 U/L (32-104); BUN 16 mg/dL (8-22); CALCIUM 8.2 mg/dL (8.8-10.2); CHLORIDE 91 mmol/L (98-107); COSMO 281; CREATININE 0.8 mg/dL (0.5-0.9); ESTIMATED GFR > 60; GLUCOSE 104 mg/dL (70-104); GOT 39 U/L (10-30); GPT 33 U/L (10-36); MAGNESIUM 1.6 mg/dL (1.5-2.7); POTASSIUM 3.1 mmol/L (3.5-5.1); SODIUM 140 mmol/L (136-145); TCO2 31 mmol/L (25-35); TOTAL BILIRUBIN 0.56 mg/dL (0.20-1.00); TOTAL PROTEIN 6.1 g/dL (6.3-8.3)
[2019-02-15] MEDS ORDERED: POTASSIUM CHLORIDE 20% LIQUID PO ONE (07:10)
[2019-02-15] MEDS ORDERED: POTASSIUM CHLORIDE 10% LIQUID NG SCH (07:15)
--- NOTE | 2019-02-15 07:16 | Diag Imaging Result Doc PS360 ---
EXAM: CHEST-PORTABLE 02/15/2019 HISTORY: vent TECHNIQUE: AP portable at 0544 COMMENT: There is an endotracheal tube with its tip just above the amie. There is an NG tube which passes below the diaphragm into the stomach. There is alveolar and interstitial opacity bilaterally consistent with pulmonary edema. This has improved considerably since 02/14/2019. IMPRESSION: Improving pulmonary edema. Electronically signed by Irving Prado 02/15/2019 7:14 AM
[2019-02-15] MEDS: MAGNESIUM SULFATE 2 GM/S.W.I. 2 GM/50 ML IVPB IV SCH ×2 (07:54→12:46)
[2019-02-15] MEDS: POTASSIUM CHLORIDE 20 MEQ/SWI 20 MEQ/100 ML IVPB IV SCH ×2 (08:01→10:48)
--- NOTE | 2019-02-15 09:54 | PROGRESS NOTE ---
DATE: 02/15/2019 INTERVAL HISTORY: Ms. Mendez had a temperature of 99.9 degrees yesterday. She is down to 70% FiO2. She has -4 L after intravenous Lasix. Her leukocytosis is improving. Her lactic acidosis has normalized. Her PO2 has been increasing. Her hypokalemia is currently being repleted. Troponins were negative. EKG had QTc of 540 and repeat EKG is pending. She has been off dopamine. I was informed that intermittently she was waking up and becoming a little fidgety. SUBJECTIVE: Ms. Mendez currently is currently intubated and not responding to verbal stimuli except strong verbal stimuli she started flickering. VITALS: Temperature of 98.8 degrees, pulse 68, respiratory 18, blood pressure 98/64. She is saturating 98% on mechanical ventilation. PHYSICAL EXAMINATION: Not in acute distress. Oral cavity has endotracheal tube. She has a NG tube.Lungs: Improved and air entry in infra inframammary region with inspiratory crackles. Cardiovascular: S1, S2 normal. No murmur, rub, or gallop. Not tachycardic at the moment. Abdomen: Soft, nontender. Active bowel sounds. Extremities: No lower extremity edema. She has a urine catheter. LABS: [place] [address], hemoglobin 11.6, platelets 246,000. D-dimer is elevated to 2.6. She does have a PO2 of 89 on 70% FiO2. Her hypokalemia with potassium of 3.4, currently being repleted. Kidney function has normalized. BUN is 16, creatinine 0.8. Her AST and ALT are improving. Her troponins were negative. No positive microbiological data. Chest x-ray in the morning time had improving pulmonary edema. Echocardiogram performed had normal left ventricular systolic function with grade 1 diastolic dysfunction. She had pulmonary artery systolic pressure of 46 and reduced right ventricular systolic function. ASSESSMENT AND PLAN: 1. Acute hypoxic respiratory failure due to bilateral multifocal pneumonia and acute pulmonary edema. Follow up final culture and data. Continue intravenous vancomycin, intravenous Zosyn, intravenous Lasix. She has been transitioned to intravenous norepinephrine and she is requiring minimum dose of it for her septic shock. Continue mechanical ventilation and sedation as per Pulmonology recommendations. 2. Acute kidney injury and electrolyte disturbance, now improving. I will monitor BMP. 3. Acute pulmonary edema bilaterally with elevated proBNP. I will repeat proBNP 24 to 48 hours later. Echocardiogram had normal left ventricular systolic function, but elevated pulmonary artery pressure and reduced right ventricular systolic function. It is possible she may have had large pulmonary embolism considering elevated D-dimer which could have led to syncope episode in the emergency room. I will follow up with CT scan angiography and continue her on enoxaparin currently at the prophylactic dose. 4. History of bipolar mood disorder, history of seizures, history of polysubstance abuse with positive amphetamine and benzodiazepine on urine drug screen. She would need extensive counseling at the time of discharge. DISPOSITION: Ms. Mendez's condition is critical. More than 30 minutes of critical care time was spent taking care of this patient. I will start her on tube feeds for nutrition. Plan of care yesterday was discussed with the patient's friend who had informed multiple family. cc: Patrick Chavarria MD
[2019-02-15] MEDS: PROTONIX IV SCH (10:46)
[2019-02-15] MEDS: SODIUM CHLORIDE 0.9% INJ SCH (10:47)
[2019-02-15] MEDS: LASIX IV SCH ×2 (10:49→22:12)
--- NOTE | 2019-02-15 10:49 | PROVIDER PROGRESS NOTE ---
Progress Note Pulmonary additional note: I have seen the case, reviewed the EMR, labs, latest images and other medical teams notes. Also reviewed the ORTHOTICS TECHNICIAN notes and signed necessary form(s). I have noted changes in condition if any from yesterday and did orders if needed. Please see also signed progress sheet. Prognosis: Guarded for now. Since yesterday, She remained on AC. CXR improving. Will attempt a weaning trial today. I reviewed the progress note of Dr. Chavarria. I asked staffing mgr about condition changes and if they have any needs in regard to today conditions. I spent more than 30 minutes in this process.
--- NOTE | 2019-02-15 12:11 | Diag Imaging Result Doc PS360 ---
EXAM: CT ANGIOGRAM PULMONARY ARTERIES 02/15/2019 HISTORY: Rule out pulmonary embolism TECHNIQUE: This exam was performed using automated exposure control, adjustment of mA or kV according to patient size, and/or use of iterative reconstruction technique. COMMENT: 3-D MIPS were performed. There are no filling defects in the pulmonary arteries. There is a endotracheal tube with its tip just above the amie and an NG tube which passes into the stomach. There is a small amount of pleural fluid in the right costophrenic sulcus. There is extensive patchy alveolar opacity present particularly in the lower lobes lingula and middle lobe with patchy interstitial and groundglass opacities in the upper lobes. Compared to the previous study of 11/17/2014, this is much worse than the ill-defined opacities which were previously present in the lower lobes. There are nonspecific nodes in the aorticopulmonary window and subcarinal regions which have not changed significantly since the previous study. The regional skeleton is intact. IMPRESSION: No evidence of pulmonary embolus. Pulmonary edema plus minus pneumonia. Electronically signed by Irving Prado 02/15/2019 12:08 PM
--- NOTE | 2019-02-15 12:27 | EKG Report ---
Test Performed on : 02/15/2019 06:32:05 AM Test Reason : Follow up QTc Blood Pressure : / mmHG Vent. Rate : 064 BPM Atrial Rate : 064 BPM P-R Int : 132 ms QRS Dur : 088 ms QT Int : 504 ms P-R-T Axes : 044 028 009 degrees QTc Int : 519 ms Normal sinus rhythm. Possible Left atrial enlargement Prolonged QT Abnormal ECG When compared with ECG of 14-FEB-2019 11:07, (Unconfirmed) No significant change was found Confirmed by Dimas MCKEON, Prashant aDvison ([id number]) on 02/17/2019 9:28:11 AM
[2019-02-15] MEDS: VANCOMYCIN 1,200 MG in NS 250 ML IV SCH (12:47)
[2019-02-15] MEDS: LOVENOX SUBQ SCH (17:08)
[2019-02-16] MEDS: MORPHINE IV PRN ×2 (01:41→09:28)
[2019-02-16] MEDS: ZOSYN 3.375 GM in NS 50 ML IV SCH ×4 (04:52→22:25)
[2019-02-16 04:56] LABS: ALLEN TEST YES; BE 16.2 mmoll (-3.0-3.0); BLOOD TYPE ARTERIAL; HCO3-(ACT) 37.5 mmoll (20.0-26.0); METHB 0.3 % (0.0-1.5); O2(CT) 19.4 mL/dL (15.0-23.0); PCO2(98.6) 44 mmHg (35-45); PO2(98.6) 98 mmHg (60-100); SAMPLE BLOOD; SAO2 96.5 % (95.0-100.0); SRATE 18 BPM; THB 14.3 g/dL (11.5-17.4); TVOL 500 mL
[2019-02-16 04:57] LABS: MODALITY VENTILATOR; pH(98.6) 7.57 (7.35-7.45)
[2019-02-16] MEDS ORDERED: DOPAMINE 800 MG/D5W 800 MG/500 ML IV.SOLN IV SCH (06:30)
--- NOTE | 2019-02-16 07:08 | Diag Imaging Result Doc PS360 ---
EXAM: CHEST-PORTABLE 02/16/2019 HISTORY: vent TECHNIQUE: AP portable at 0602 COMMENT: There is an endotracheal tube with its tip at the amie and slightly directed towards the orifice of the right mainstem bronchus. This has not changed significantly since the previous study. There is an NG tube with its tip below the diaphragm in the stomach. There is patchy alveolar opacity particularly in the lower lung ruggiero and generalized interstitial opacity. Compared to the previous examination this is minimally improved. There has been considerable improvement since 02/14/2019 however. IMPRESSION: Pulmonary edema plus minus atelectasis. Electronically signed by Irving Prado 02/16/2019 7:05 AM
--- NOTE | 2019-02-16 08:41 | PROGRESS NOTE ---
DATE: 02/16/2019 INTERVAL HISTORY: No acute events overnight. SUBJECTIVE: Ms. Mendez did have episodes of bradycardia with heart rate dropping down to 30s. The nurse had noticed that it could be related to norepinephrine and her norepinephrine was switched to dopamine. She is intubated. She is on midazolam but she keeps on becoming fidgety on midazolam and currently turned to right lateral position, though synchronizing well with the ventilator. VITALS: Temperature of 98.8 degrees, pulse 60, respiratory rate 20, blood pressure 100/63, saturating 99% on the ventilator. PHYSICAL EXAMINATION: Not in acute distress. Oral cavity is moist. She has endotracheal tube. Lungs: Air entry bilaterally equal, though decreased lung sounds with inspiratory crackles bilaterally. S1, S2 normal. No murmur, rub, or gallop. Abdomen: Soft, nontender. Active bowel sounds. No lower extremity edema. She has urine catheter. Input and output suggest -2.5 L so far. LABS: No CBC today. ABG suggestive of metabolic alkalosis. Hypokalemia which is currently being repleted. MICROBIOLOGY: No positive data. IMAGING: Chest x-ray today suggests pulmonary edema plus or minus atelectasis. ASSESSMENT AND PLAN: 1. Acute hypoxic respiratory failure due to bilateral multifocal pneumonia and acute pulmonary edema. Culture data has been negative. Continue intravenous vancomycin, intravenous Zosyn, and gentle diuresis. Continue intravenous dopamine for septic shock. Continue mechanical ventilation with sedation as per pulmonology recommendations. 2. Sepsis due to suspected bilateral pneumonia. Plan as mentioned above. 3. Acute kidney injury and electrolyte disturbance, now improving. She is developing metabolic alkalosis due to intravenous Lasix use. I will monitor BMP. 4. Acute pulmonary edema with elevated proBNP. Her left ventricular systolic function has been unremarkable. She did have reduced systolic function of right ventricle with pulmonary hypertension which could be in the setting of, in fact, use of recreational substances. Her CAT scan did not detect any pulmonary embolism and troponins were negative. 5. History of bipolar mood disorder, seizures, polysubstance abuse with positive amphetamine and benzodiazepine drug screen on presentation. I will continue to monitor her. 6. Disposition. More than 30 minutes of critical care time were spent in taking care of this patient. Her condition is critical. Prognosis is guarded. Plan of care discussed with nursing team. cc: Patrick Chavarria MD
[2019-02-16 09:42] LABS: AGAP 12; BUN 21 mg/dL (8-22); CALCIUM 8.8 mg/dL (8.8-10.2); CHLORIDE 90 mmol/L (98-107); COSMO 276; CREATININE 0.8 mg/dL (0.5-0.9); ESTIMATED GFR > 60; GLUCOSE 114 mg/dL (70-104); POTASSIUM 2.9 mmol/L (3.5-5.1); SODIUM 136 mmol/L (136-145); TCO2 34 mmol/L (25-35)
[2019-02-16] MEDS: VERSED 100 MG in NS 80 ML IV SCH (09:50)
[2019-02-16] MEDS: PROTONIX IV SCH (10:36)
[2019-02-16] MEDS: SODIUM CHLORIDE 0.9% INJ SCH (10:36)
[2019-02-16] MEDS: HALDOL IV PRN ×2 (10:37→11:06)
[2019-02-16] MEDS ORDERED: ROMAZICON IV ONE (10:48)
--- NOTE | 2019-02-16 10:50 | PROVIDER PROGRESS NOTE ---
Progress Note Pulmonary additional note: I have seen the case, reviewed the EMR, labs, latest images and other medical teams notes. Also reviewed the HOME SERVICE CONSULTANT notes and signed necessary form(s). I have noted changes in condition if any from yesterday and did orders. Please see also signed progress sheet. Prognosis: Guarded for now. Since yesterday, She came off dopamine per EMR. Today will DC versed and give flumazenil. I reviewed notes from Dr. Chavarria I asked billing and accounting staff assistant about condition changes and if they have any needs in regard to today conditions. I spent 32 minutes in this process.
[2019-02-16] MEDS: VANCOMYCIN 1,200 MG in NS 250 ML IV SCH (11:45)
--- NOTE | 2019-02-16 12:07 | CARDIOLOGY CONSULTATION ---
DATE: 02/16/2019 CHIEF COMPLAINT: Bradycardia. HISTORY OF PRESENT ILLNESS: Ms. Mendez is a 53-year-old female with bipolar disorder, polysubstance abuse, who presented with delusions. She became somewhat cyanotic and was bradypneic. She was subsequently intubated. The patient currently is sedated on the ventilator. No family is available. During the course of the hospitalization, she has apparently had some relative low heart rates. Discussion with the nurse seems to revealed that these are most often when she is a little bit more awake and fighting the ventilator. I believe the lowest these were noted to be were in the upper 40s. She really has no documented heart rates in the chart that appear to be lower than the 50s recently. The patient is not currently on any AV [place] blocking agents, nor does it appear that she is on any at home. Echocardiogram has revealed her ejection fraction to be normal. PAST MEDICAL HISTORY: Via chart review is evident for: 1. Bipolar disorder. 2. Polysubstance abuse. 3. ADD. SOCIAL HISTORY: Per chart review, she smokes no alcohol. She does have a history of opioid and benzodiazepine abuse. FAMILY HISTORY: Unable to be obtained secondary to the patient's current intubated status. REVIEW OF SYSTEMS: Unable to be obtained secondary to the patient's current intubated status. PHYSICAL EXAMINATION: Vital Signs: She was febrile early the morning of 02/14/2019 at 4 a.m. at 100.6. Since then, she has not been febrile. Her heart rate is 66, her blood pressure is 101/63. Her I's and O's have been negative around 6.5 L recently. General: She is in no acute distress. HEENT: Oropharynx is moist. Poor dentition. Eye examination shows pink conjunctivae, white sclerae. Neck: No obvious thyromegaly or thyroid tenderness. Cardiovascular: She sounds to be in a regular rate and rhythm. She is in sinus mechanism on the telemetry. She has no lower extremity edema. She has warm and well-perfused extremities. Chest: Sounds relatively clear. She has no increased work of breathing. Abdomen: Soft, nontender, nondistended. She has no obvious organomegaly. Skin: Warm and dry throughout. Neurologic/Psychiatric: Not able to be performed secondary to current sedated status. PERTINENT DATA: Her CTA of her chest shows pulmonary edema plus or minus pneumonia. Her echocardiogram again showed a preserved ejection fraction of 65%. She does have some elevated right ventricular pressures with a PA pressure of 46. Right ventricle was somewhat dilated. Her most recent chest x-ray demonstrated pulmonary edema plus or minus atelectasis. Her lab data demonstrates a white count yesterday of 13.7, hematocrit 34, platelet count of 246,000. Her sodium today was 136, potassium is 2.9, BUN 21, creatinine 0.8. Magnesium level 2.2. ASSESSMENT: Ms. Mendez is a 53-year-old female who presented with the above issues, had respiratory failure, was subsequently intubated. She has had relative bradycardia. X-rays and CTs have demonstrated pulmonary edema. PLAN: She has a preserved ejection fraction. I agree with continuing on the diuretics. Her potassium has not been repleted this morning. She seems to be diuresing reasonably well. Her bradycardia is most likely vagally mediated when she is fighting against the ventilator. It does not appear to have resulted in any significant AV block, nor in any significant reductions in heart rate. I will replete her potassium this morning. No further recommendations. cc: Lei Mcduffie MD
[2019-02-16] MEDS: POTASSIUM CHLORIDE 20% LIQUID NG SCH ×2 (12:08→17:20)
[2019-02-16] MEDS ORDERED: ROMAZICON ONE (12:19)
[2019-02-16] MEDS ORDERED: HALDOL ONE (12:19)
[2019-02-16] MEDS ORDERED: STERILE WATER INJ. INJ ONE (12:30)
[2019-02-16] MEDS ORDERED: GEODON IM ONE (12:30)
[2019-02-16 13:05] LABS: ALLEN TEST YES; BE 15.5 mmoll (-3.0-3.0); BLOOD TYPE ARTERIAL; HCO3-(ACT) 36.8 mmoll (20.0-26.0); METHB 0.4 % (0.0-1.5); PO2(98.6) 53 mmHg (60-100); SAMPLE BLOOD; SAO2 88.7 % (95.0-100.0); THB 12.1 g/dL (11.5-17.4); pH(98.6) 7.46 (7.35-7.45)
[2019-02-16 13:06] LABS: MODALITY VENTILATOR; O2HB 88.2 % (95.0-99.0); PCO2(98.6) 59 mmHg (35-45)
[2019-02-16] MEDS ORDERED: POTASSIUM CHLORIDE 20 MEQ/SWI 20 MEQ/100 ML IVPB IV ONE ×2 (17:17→20:00)
[2019-02-16] MEDS: LASIX IV SCH (17:59)
[2019-02-16] MEDS: LOVENOX SUBQ SCH (17:59)
[2019-02-16 19:33] LABS: ALLEN TEST YES; BE 13.6 mmoll (-3.0-3.0); BLOOD TYPE ARTERIAL; HCO3-(ACT) 35.5 mmoll (20.0-26.0); O2(CT) 17.1 mL/dL (15.0-23.0); O2HB 96.5 % (95.0-99.0); PO2(98.6) 99 mmHg (60-100); SAMPLE BLOOD; SAO2 96.5 % (95.0-100.0); THB 12.5 g/dL (11.5-17.4); pH(98.6) 7.43 (7.35-7.45)
[2019-02-16 19:35] LABS: MODALITY BI PAP; PCO2(98.6) 61 mmHg (35-45)
--- NOTE | 2019-02-16 20:54 | EKG Report ---
Test Performed on : 02/16/2019 8:22:17 PM Test Reason : Follow up QTc. Austyn barry MD if >500 Blood Pressure : / mmHG Vent. Rate : 073 BPM Atrial Rate : 073 BPM P-R Int : 144 ms QRS Dur : 088 ms QT Int : 470 ms P-R-T Axes : 034 013 014 degrees QTc Int : 517 ms Normal sinus rhythm. Prolonged QT Abnormal ECG When compared with ECG of 15-FEB-2019 06:32, (Unconfirmed) No significant change was found Confirmed by Dimas MCKEON, Prashant Davison ([id number]) on 02/17/2019 9:29:12 AM
[2019-02-17] MEDS: HALDOL IV PRN ×3 (04:10→14:41)
[2019-02-17 05:08] LABS: BASO# 0.12 X1000 (0.0-0.2); BASO% 1.3 % (0.0-0.8); EOS# 0.36 X1000 (0.0-0.7); EOS% 3.9 % (0.0-10.0); HEMATOCRIT 36.5 % (37.0-47.0); IMM GRAN# 0.15 X1000 (0.0-0.04); IMM GRAN% 1.6 % (0.0-0.5); LYMPH# 2.36 X1000 (1.2-3.4); LYMPH% 25.3 % (20.5-51.1); MCH 29.7 PG (27-31); MCHC 32.9 g/dL (33-37); MCV 90.3 FL (81-99); MONO% 7.5 % (1.7-9.3); NEUT# 5.63 X1000 (1.4-6.5); NEUT% 60.4 % (42.2-75.2); PLT 278 X1000 (130-400); RBC 4.04 XMIL (4.2-5.4); RDW 14.8 % (11.5-14.5); WBC 9.32 X1000 (4.8-10.8)
[2019-02-17 05:11] LABS: ALLEN TEST YES; BE 11.8 mmoll (-3.0-3.0); BLOOD TYPE ARTERIAL; HCO3-(ACT) 33.9 mmoll (20.0-26.0); METHB 0.2 % (0.0-1.5); O2(CT) 20.4 mL/dL (15.0-23.0); O2HB 91.9 % (95.0-99.0); PO2(98.6) 63 mmHg (60-100); SAMPLE BLOOD; SAO2 92.2 % (95.0-100.0); THB 15.8 g/dL (11.5-17.4); pH(98.6) 7.44 (7.35-7.45)
[2019-02-17 05:12] LABS: MODALITY BI PAP; PCO2(98.6) 57 mmHg (35-45)
[2019-02-17] MEDS: ZOSYN 3.375 GM in NS 50 ML IV SCH ×4 (05:23→22:09)
[2019-02-17 06:09] LABS: AGAP 17; ALB/GLOB RATIO 0.7; ALBUMIN 2.9 g/dL (3.5-5.0); BUN 25 mg/dL (8-22); CALCIUM 8.6 mg/dL (8.8-10.2); CHLORIDE 96 mmol/L (98-107); COSMO 290; CREATININE 0.7 mg/dL (0.5-0.9); DIRECT BILIRUBIN 0.2 mg/dL (0.00-0.20); ESTIMATED GFR > 60; GLUCOSE 84 mg/dL (70-104); MAGNESIUM 2.2 mg/dL (1.5-2.7); PHOSPHORUS 4.5 mg/dL (2.7-4.5); POTASSIUM 3.7 mmol/L (3.5-5.1); SODIUM 144 mmol/L (136-145); TCO2 31 mmol/L (25-35); TOTAL BILIRUBIN 0.35 mg/dL (0.20-1.00)
--- NOTE | 2019-02-17 07:27 | Diag Imaging Result Doc PS360 ---
EXAM: CHEST-PORTABLE HISTORY: vent TECHNIQUE: Single view COMPARISON: 02/16/2019 FINDINGS: The endotracheal and nasogastric tubes have been removed. There are bilateral infiltrates and atelectasis. These are more prominent in the right base than on the prior study. Small right pleural effusion. Mild cardiomegaly. IMPRESSION: Mild interval worsening Electronically signed by Km Lange 02/17/2019 7:25 AM
[2019-02-17] MEDS ORDERED: LASIX IV ONE (08:08)
--- NOTE | 2019-02-17 10:04 | PROVIDER PROGRESS NOTE ---
Progress Note Pulmonary additional note: I have seen the case, reviewed the EMR, labs, latest images and other medical teams notes. Also reviewed the CONSTRUCTION SUPERVISOR notes and signed necessary form(s). I have noted changes in condition if any from yesterday and did orders. Please see also signed progress sheet. Prognosis: Guarded for now. Since yesterday, She came tolerated the weaning trial and was extubated. Bipap is used. I reviewed notes from Dr. Chavarria and Dr. Mcduffie. I discussed the case with her daughter. A. Respiratory failure, OD, shock is better, pneumonia and pulmonary edema I asked staff counselor about condition changes and if they have any needs in regard to today conditions. I spent 33 minutes in this process.
[2019-02-17 10:08] LABS: URINE SOURCE CATH
[2019-02-17 10:13] LABS: BILIRUBIN URINE NEGATIVE (NEGATIVE); BLOOD URINE NEGATIVE (NEGATIVE); COLOR STRAW; GLUCOSE URINE NEGATIVE (NEGATIVE); KETONE URINE NEGATIVE (NEGATIVE); LEUKOCYTES URINE TRACE (NEGATIVE); NITRITE URINE NEGATIVE (NEGATIVE); PH URINE 7.5; PROTEIN URINE NEGATIVE (NEGATIVE); SP GRAVITY URINE 1.008; TURBIDITY URINE CLEAR (CLEAR); UR EPITHELIAL CELLS <10 /HPF (<10); URINE BACTERIA NEGATIVE /HPF; URINE RBC <10 /HPF (<10); URINE WBC <10 /HPF (<10); UROBILINOGEN URINE 2 mg/dL (NORMAL)
[2019-02-17] MEDS: PROTONIX IV SCH (11:01)
[2019-02-17] MEDS: SODIUM CHLORIDE 0.9% INJ SCH (11:01)
[2019-02-17] MEDS: VANCOMYCIN 1,200 MG in NS 250 ML IV SCH (11:01)
[2019-02-17] MEDS ORDERED: BLISTEX MEDICATED BERRY LIP BALM TOP PRN (11:11)
--- NOTE | 2019-02-17 11:34 | PROGRESS NOTE ---
DATE: 02/17/2019 INTERVAL HISTORY: Ms. Mendez was extubated to BiPAP yesterday. She has not had any significant events overnight. Her leukocytosis has been improving. Her proBNP has been decreasing. Her liver function tests have been normalizing. Her QTc has been prolonged, so I discussed with the nurse about following up with another EKG. I decreased the frequency of haloperidol. We discussed about possible bradycardia and monitoring for cardiac arrhythmia. SUBJECTIVE: Ms. Mendez opens eyes to strong verbal stimuli and answers simple questions. She denies any chest pain. She denies any abdominal pain. PHYSICAL EXAMINATION: Vital Signs: Temperature of 99.3 degrees, pulse 84, respiratory rate 22, blood pressure 114/81. She is currently saturating between 90% to 94% on cool aerosol. HEENT: On physical examination, oral cavity is moist. Lungs: She has bilateral crackles effecting diffuse lung ruggiero. Cardiac: S1, S2 normal. No murmur, rub, or gallop. Abdomen: Soft. Nontender. Extremities: She does not have lower extremity edema. Genitourinary: She has a urine catheter. LABS: Suggestive of resolution of leukocytosis, normocytic anemia, normal platelet count. She does have hypercarbia which appears to be compensated and PO2 of 63 on BiPAP. Her kidney function is normal. Her proBNP decreased from 14,000 to 500. Urine Legionella and streptococcal antigens have been negative. Microbiology, no positive data. IMAGING: Chest x-ray today suggests mild interval worsening. She has been ordered a 1 time dose of intravenous Lasix, and she is on intravenous Lasix as well, scheduled. ASSESSMENT AND PLAN: 1. Acute hypoxic respiratory failure due to bilateral multifocal pneumonia and acute pulmonary edema. Culture data has been negative. Continue intravenous vancomycin, intravenous Zosyn, and gentle diuresis to match input and output. Her septic shock has resolved. She was extubated on February 16. Pulmonology team on board. 2. Acute kidney injury and electrolyte imbalance due to septic shock on presentation, now improved. 3. Acute pulmonary edema with elevated proBNP. Her left ventricular systolic function was unremarkable. She did have reduced right ventricular systolic function with pulmonary hypertension, which could be in the setting of recreational substance abuse. CT scan did not detect any pulmonary embolism. Her proBNP is decreasing. I will keep her intravenous Lasix. 4. History of bipolar mood disorder, seizures, polysubstance abuse with positive amphetamine and benzodiazepine drug screen on presentation. I will monitor her for withdrawals and senior vice president & general counsel her against use of these substances whenever she is alert and oriented. DISPOSITION: I will monitor the patient inside ICU more. TIME SPENT: More than 30 minutes of critical care time was spent in taking care of this patient. HOSPITAL COURSE: In brief, Ms. Mendez had originally presented on 02/13/2018 with chief complaints of altered mental status, paranoid delusion. She had initially gone to urgent care from where she was referred to the emergency room. In the emergency room, she fell down while going to the bathroom and was found to have significant cyanosis with oxygen saturation in 50s. The patient had admitted to be using recreational substances prior to coming to the emergency room, and there were concerns about airway protection, so she was intubated and was admitted in the ICU. Since then, she has been she was found to have acute pulmonary edema with bilateral lung infiltrate and being treated for pneumonia as well as volume overload. I talked with the patient's friend who is listed as immediate contact yesterday, and I have been keeping her informed. I asked the nurse to inform me if any of the family members comes by or calls to update them. ADDENDUM: I called Ms. Quintana, her primary contact and updated her about Ms. Mendez's clinical condition. She says I should be talking to her to update her and she would update other family members. I discussed with her about her improving blood tests, however, persistent lung infiltrate and critical condition and answered all of her questions. cc: MD PADMINI Albarran
[2019-02-17] MEDS: LIDODERM TOP SCH (15:34)
[2019-02-17] MEDS: TYLENOL NG PRN (15:37)
--- NOTE | 2019-02-17 17:18 | EKG Report ---
Test Performed on : 02/17/2019 4:00:38 PM Test Reason : Prolonged QTc. Please page MD if QTc>500.Thanks Blood Pressure : / mmHG Vent. Rate : 071 BPM Atrial Rate : 071 BPM P-R Int : 146 ms QRS Dur : 088 ms QT Int : 464 ms P-R-T Axes : 037 002 016 degrees QTc Int : 504 ms Normal sinus rhythm. Prolonged QT Abnormal ECG When compared with ECG of 16-FEB-2019 20:22, No significant change was found Confirmed by Dimas MCKEON, Prashant Davison ([id number]) on 02/19/2019 10:19:03 AM
--- NOTE | 2019-02-17 17:19 | PROVIDER PROGRESS NOTE ---
Progress Note Dr. Hernandez Progress Note/Pulmonary and or critical care We appreciated progress of care, Complications, change in diagnosis, and instructions to patient under direct supervision of Dr. Hernandez. Subjective: We note the level of consciousness, bed (chair) position, family presence (if any), level of lethargy, feeling of symptoms, and changes from baseline condition/symptom. The patient is on 4 point restraint. She is on venturi mask 50% and tolerates well. She is a/ox1. Vital Signs: We reviewed EMR current values for Pulse rate, Blood pressure, Pulse rate, respiratory rate and Pulse oximetry. Also noted other values and trends if present (e.g. I/O, CVP). Vital Signs 02/16/19 17:30 02/16/19 17:45 02/16/19 17:46 Temperature Pulse Rate 67 67 67 Respiratory Rate 21 23 23 Blood Pressure 129/58 126/54 O2 Sat by Pulse Oximetry 93 L 93 L 93 L 02/16/19 18:00 02/16/19 18:01 02/16/19 18:15 Temperature Pulse Rate 67 66 66 Respiratory Rate 22 26 H 25 H Blood Pressure 126/56 138/59 O2 Sat by Pulse Oximetry 93 L 93 L 92 L 02/16/19 18:16 02/16/19 18:30 02/16/19 18:45 Temperature Pulse Rate 64 66 68 Respiratory Rate 24 26 H 25 H Blood Pressure 130/57 137/57 O2 Sat by Pulse Oximetry 93 L 92 L 92 L 02/16/19 19:00 02/16/19 19:01 02/16/19 19:15 Temperature Pulse Rate 77 81 72 Respiratory Rate 42 H 25 H 32 H Blood Pressure 154/59 O2 Sat by Pulse Oximetry 86 L 85 L 96 02/16/19 19:16 02/16/19 19:30 02/16/19 19:45 Temperature Pulse Rate 72 75 74 Respiratory Rate 37 H 30 H 30 H Blood Pressure 146/57 135/68 130/68 O2 Sat by Pulse Oximetry 96 98 100 02/16/19 20:00 02/16/19 20:15 02/16/19 20:16 Temperature 96.6 F L Pulse Rate 67 71 74 Respiratory Rate 25 H 30 H 32 H Blood Pressure 146/60 115/58 O2 Sat by Pulse Oximetry 100 98 99 02/16/19 20:30 02/16/19 20:31 02/16/19 20:45 Temperature Pulse Rate 71 74 70 Respiratory Rate 30 H 30 H 32 H Blood Pressure 144/54 O2 Sat by Pulse Oximetry 98 98 98 02/16/19 20:46 02/16/19 21:00 02/16/19 21:15 Temperature Pulse Rate 71 68 70 Respiratory Rate 30 H 23 26 H Blood Pressure 138/48 158/60 161/61 O2 Sat by Pulse Oximetry 100 100 99 02/16/19 21:30 02/16/19 21:45 02/16/19 21:46 Temperature Pulse Rate 75 78 80 Respiratory Rate 28 H 26 H 25 H Blood Pressure 164/57 134/61 O2 Sat by Pulse Oximetry 99 97 96 02/16/19 22:00 02/16/19 22:15 02/16/19 22:30 Temperature Pulse Rate 72 78 75 Respiratory Rate 22 27 H 25 H Blood Pressure 149/62 153/78 158/68 O2 Sat by Pulse Oximetry 98 98 98 02/16/19 22:45 02/16/19 22:46 02/16/19 23:00 Temperature Pulse Rate 71 72 78 Respiratory Rate 28 H 27 H 28 H Blood Pressure 149/58 152/66 O2 Sat by Pulse Oximetry 100 100 100 02/16/19 23:01 02/16/19 23:15 02/16/19 23:30 Temperature Pulse Rate 80 77 72 Respiratory Rate 25 H 25 H 24 Blood Pressure 160/63 159/62 O2 Sat by Pulse Oximetry 100 99 99 02/16/19 23:45 02/17/19 00:00 02/17/19 00:15 Temperature 99.5 F Pulse Rate 75 76 75 Respiratory Rate 30 H 24 30 H Blood Pressure 161/66 162/65 156/60 O2 Sat by Pulse Oximetry 99 99 98 02/17/19 00:30 02/17/19 00:45 02/17/19 01:00 Temperature Pulse Rate 78 74 74 Respiratory Rate 26 H 25 H 25 H Blood Pressure 165/64 150/67 158/63 O2 Sat by Pulse Oximetry 97 95 97 02/17/19 01:01 02/17/19 01:15 02/17/19 01:30 Temperature Pulse Rate 79 76 73 Respiratory Rate 31 H 25 H 23 Blood Pressure 148/64 157/68 O2 Sat by Pulse Oximetry 97 95 96 02/17/19 01:31 02/17/19 01:45 02/17/19 02:00 Temperature Pulse Rate 73 76 70 Respiratory Rate 21 25 H 23 Blood Pressure 157/63 151/64 O2 Sat by Pulse Oximetry 97 97 96 02/17/19 02:01 02/17/19 02:15 02/17/19 02:16 Temperature Pulse Rate 72 72 73 Respiratory Rate 24 24 22 Blood Pressure 148/62 O2 Sat by Pulse Oximetry 96 97 96 02/17/19 02:30 02/17/19 02:45 02/17/19 03:00 Temperature Pulse Rate 81 72 72 Respiratory Rate 29 H 22 26 H Blood Pressure 152/57 147/60 146/57 O2 Sat by Pulse Oximetry 96 96 94 L 02/17/19 03:15 02/17/19 03:30 02/17/19 03:45 Temperature Pulse Rate 80 77 69 Respiratory Rate 31 H 30 H 22 Blood Pressure 136/63 154/73 159/71 O2 Sat by Pulse Oximetry 94 L 94 L 95 02/17/19 04:00 02/17/19 04:15 02/17/19 04:30 Temperature 99.3 F Pulse Rate 69 70 70 Respiratory Rate 22 22 21 Blood Pressure 149/73 143/73 139/70 O2 Sat by Pulse Oximetry 96 96 95 02/17/19 04:31 02/17/19 04:45 02/17/19 04:46 Temperature Pulse Rate 71 69 69 Respiratory Rate 24 21 21 Blood Pressure 152/72 O2 Sat by Pulse Oximetry 96 96 96 02/17/19 05:00 02/17/19 05:01 02/17/19 05:15 Temperature Pulse Rate 69 70 70 Respiratory Rate 21 23 24 Blood Pressure 152/68 148/59 O2 Sat by Pulse Oximetry 96 96 97 02/17/19 05:30 02/17/19 05:45 02/17/19 06:00 Temperature Pulse Rate 71 70 66 Respiratory Rate 22 21 20 Blood Pressure 149/61 149/58 144/59 O2 Sat by Pulse Oximetry 97 95 96 02/17/19 06:01 02/17/19 06:15 02/17/19 06:16 Temperature Pulse Rate 70 70 71 Respiratory Rate 21 21 22 Blood Pressure 146/61 O2 Sat by Pulse Oximetry 96 97 97 02/17/19 06:30 02/17/19 06:31 02/17/19 07:00 Temperature Pulse Rate 78 79 72 Respiratory Rate 34 H 32 H 31 H Blood Pressure 145/58 166/36 O2 Sat by Pulse Oximetry 94 L 94 L 90 L 02/17/19 07:17 02/17/19 07:32 02/17/19 07:46 Temperature Pulse Rate 77 69 76 Respiratory Rate 36 H 29 H 27 H Blood Pressure 148/70 164/70 129/61 O2 Sat by Pulse Oximetry 93 L 90 L 91 L 02/17/19 08:00 02/17/19 08:19 02/17/19 08:30 Temperature 98.5 F Pulse Rate 72 73 66 Respiratory Rate 24 24 24 Blood Pressure 133/53 129/54 147/63 O2 Sat by Pulse Oximetry 95 96 99 02/17/19 08:45 02/17/19 09:00 02/17/19 09:15 Temperature Pulse Rate 55 L 56 L 64 Respiratory Rate 22 22 20 Blood Pressure 124/65 122/70 126/65 O2 Sat by Pulse Oximetry 98 98 98 02/17/19 09:30 02/17/19 09:47 02/17/19 10:01 Temperature Pulse Rate 69 91 H 84 Respiratory Rate 20 24 18 Blood Pressure 124/65 163/88 175/94 O2 Sat by Pulse Oximetry 96 90 L 93 L 02/17/19 10:16 02/17/19 10:31 02/17/19 10:45 Temperature Pulse Rate 81 84 87 Respiratory Rate 20 22 28 H Blood Pressure 140/68 114/81 134/66 O2 Sat by Pulse Oximetry 94 L 94 L 89 L 02/17/19 11:02 02/17/19 11:16 02/17/19 11:30 Temperature Pulse Rate 83 78 84 Respiratory Rate 21 27 H 38 H Blood Pressure 127/84 138/91 147/77 O2 Sat by Pulse Oximetry 92 L 95 92 L 02/17/19 11:46 02/17/19 12:00 02/17/19 12:15 Temperature 97.7 F Pulse Rate 76 73 75 Respiratory Rate 24 28 H 26 H Blood Pressure 146/73 168/98 147/95 O2 Sat by Pulse Oximetry 98 97 96 02/17/19 12:30 02/17/19 12:45 02/17/19 13:00 Temperature Pulse Rate 72 62 78 Respiratory Rate 22 21 32 H Blood Pressure 142/88 163/82 155/90 O2 Sat by Pulse Oximetry 95 99 91 L Intake & Output 02/16/19 02/17/19 02/17/19 19:59 07:59 19:59 Intake Total 473 / 873 400 / 873 830 / 830 Output Total 240 / 1140 900 / 1140 1650 / 1650 Balance 233 / -267 -500 / -267 -820 / -820 Intake: Intake, IVPB 300 / 700 400 / 700 350 / 350 Intake, Other Amount 43 / 43 Intake, Oral Amount 480 / 480 Intake, Tube Feeding Amount 100 / 100 Intake, Tube Irrigant Amount 30 / 30 Output: Output, Urine Lopez Amount 240 / 1140 900 / 1140 1650 / 1650 Other: Percent of Meal Consumed Bites Only NG/Feeding Tube Residual Check Yes: 05 & Amount Objective: We examined the following systems General and HEENT: Trachea Midline. Mucus dry Chest: Reduced Entry. Crackles. CVS: S1 S2. Abdomen: Bowel Sounds present. Soft. Extremities: no significant changes. Neuro: Alert. Confused. Weakness present. Labs and Radiology: Reviewed available labs and radiology values available at time of EMR review. Laboratory Results 02/16/19 02/17/19 02/17/19 19:24 04:16 04:16 WBC RBC Hgb Hct MCV MCH MCHC RDW Std Deviation Plt Count MPV Immature Gran % (Auto) Neut % (Auto) Lymph % (Auto) [place] % (Auto) Eos % (Auto) Baso % (Auto) Immature Gran # (Auto) Neut # (Auto) Lymph # (Auto) [place] # (Auto) Eos # (Auto) Baso # (Auto) Specimen Type ARTERIAL Sample Site R RADIAL pH 7.43 pCO2 61 H* pO2 99 HCO3 35.5 H Base Excess 13.6 H Oxyhemoglobin 96.5 ABG O2 Sat (Calculated) 17.1 ABG O2 Saturation 96.5 ABG Carboxyhemoglobin 0.00 L ABG Methemoglobin 0.0 Angel Test YES A-a O2 Difference 538.0 Total Hemoglobin 12.5 Lactate 1.10 Blood Gas Modality BI PAP Vent Mode BIPAP FiO2 % 100.0 Inspiratory BiPAP 12.0 Expiratory BiPAP 8.0 Sodium Potassium Chloride Carbon Dioxide Anion Gap BUN Creatinine Estimated GFR/1.73 m2 BUN/Creatinine Ratio Glucose Calculated Osmolality Calcium Phosphorus 4.5 Magnesium 2.2 Total Bilirubin 0.35 Direct Bilirubin 0.20 AST 24 ALT 21 Alkaline Phosphatase 91 [id number] Pept 498 H Total Protein 7.0 Albumin 2.9 L Globulin 4.1 Albumin/Globulin Ratio 0.7 Urine Source Urine Color Urine Turbidity Urine pH Ur Specific Reynolds Urine Protein Ur Glucose (Stick) Ur Ketones (Stick) Urine Blood Urine Nitrite Urine Bilirubin Urobilinogen Dipstick Urine Leukocytes Urine WBC (Auto) Urine RBC (Auto) U Epithel Cells (Auto) Urine Bacteria (Auto) 02/17/19 02/17/19 02/17/19 04:16 04:16 05:03 WBC 9.32 RBC 4.04 L Hgb 12.0 Hct 36.5 L MCV 90.3 MCH 29.7 MCHC 32.9 L RDW Std Deviation 14.8 H Plt Count 278 MPV 10.0 Immature Gran % (Auto) 1.6 H Neut % (Auto) 60.4 Lymph % (Auto) 25.3 [place] % (Auto) 7.5 Eos % (Auto) 3.9 Baso % (Auto) 1.3 H Immature Gran # (Auto) 0.15 H Neut # (Auto) 5.63 Lymph # (Auto) 2.36 [place] # (Auto) 0.70 H Eos # (Auto) 0.36 Baso # (Auto) 0.12 Specimen Type ARTERIAL Sample Site R RADIAL pH 7.44 pCO2 57 H* pO2 63 HCO3 33.9 H Base Excess 11.8 H Oxyhemoglobin 91.9 L ABG O2 Sat (Calculated) 20.4 ABG O2 Saturation 92.2 L ABG Carboxyhemoglobin 0.10 ABG Methemoglobin 0.2 Angel Test YES A-a O2 Difference 151.0 Total Hemoglobin 15.8 Lactate 1.50 Blood Gas Modality BI PAP Vent Mode BIPAP FiO2 % 40.0 Inspiratory BiPAP 12.0 Expiratory BiPAP 8.0 Sodium 144 Potassium 3.7 D Chloride 96 L Carbon Dioxide 31 Anion Gap 17 BUN 25 H Creatinine 0.7 Estimated GFR/1.73 m2 > 60 BUN/Creatinine Ratio 36 Glucose 84 Calculated Osmolality 290 Calcium 8.6 L Phosphorus Magnesium Total Bilirubin Direct Bilirubin AST ALT Alkaline Phosphatase [id number] Pept Total Protein Albumin Globulin Albumin/Globulin Ratio Urine Source Urine Color Urine Turbidity Urine pH Ur Specific Reynolds Urine Protein Ur Glucose (Stick) Ur Ketones (Stick) Urine Blood Urine Nitrite Urine Bilirubin Urobilinogen Dipstick Urine Leukocytes Urine WBC (Auto) Urine RBC (Auto) U Epithel Cells (Auto) Urine Bacteria (Auto) 02/17/19 10:00 WBC RBC Hgb Hct MCV MCH MCHC RDW Std Deviation Plt Count MPV Immature Gran % (Auto) Neut % (Auto) Lymph % (Auto) [place] % (Auto) Eos % (Auto) Baso % (Auto) Immature Gran # (Auto) Neut # (Auto) Lymph # (Auto) [place] # (Auto) Eos # (Auto) Baso # (Auto) Specimen Type Sample Site pH pCO2 pO2 HCO3 Base Excess Oxyhemoglobin ABG O2 Sat (Calculated) ABG O2 Saturation ABG Carboxyhemoglobin ABG Methemoglobin Angel Test A-a O2 Difference Total Hemoglobin Lactate Blood Gas Modality Vent Mode FiO2 % Inspiratory BiPAP Expiratory BiPAP Sodium Potassium Chloride Carbon Dioxide Anion Gap BUN Creatinine Estimated GFR/1.73 m2 BUN/Creatinine Ratio Glucose Calculated Osmolality Calcium Phosphorus Magnesium Total Bilirubin Direct Bilirubin AST ALT Alkaline Phosphatase [id number]-Kmvgmkmjekz Pept Total Protein Albumin Globulin Albumin/Globulin Ratio Urine Source CATH Urine Color STRAW Urine Turbidity CLEAR Urine pH 7.5 Ur Specific Reynolds 1.008 Urine Protein NEGATIVE Ur Glucose (Stick) NEGATIVE Ur Ketones (Stick) NEGATIVE Urine Blood NEGATIVE Urine Nitrite NEGATIVE Urine Bilirubin NEGATIVE Urobilinogen Dipstick 2 A Urine Leukocytes TRACE A Urine WBC (Auto) <10 Urine RBC (Auto) <10 U Epithel Cells (Auto) <10 Urine Bacteria (Auto) NEGATIVE Dr. Hernandez evaluated and additional note below. Evaluation time in minutes: 31 minutes Assessment: Respiratory failure Pulmonary edema Pneumonia, b/l multifocal Septic shock Plan Continue current treatment and supportive care per admitting and other teams on the case. Pressors Antibiotics Appropriate DVT and GI prophylaxis Input was appreciated from Admitting MD and other teams on the case. See additional notes by Dr. Hernandez.
[2019-02-17] MEDS: LOVENOX SUBQ SCH (17:50)
[2019-02-17] MEDS: LASIX IV SCH (17:50)
[2019-02-18 05:00] LABS: ALLEN TEST YES; BE 15.2 mmoll (-3.0-3.0); BLOOD TYPE ARTERIAL; HCO3-(ACT) 36.7 mmoll (20.0-26.0); O2(CT) 18.7 mL/dL (15.0-23.0); O2HB 96.1 % (95.0-99.0); PCO2(98.6) 48 mmHg (35-45); PO2(98.6) 96 mmHg (60-100); SAMPLE BLOOD; SAO2 96.3 % (95.0-100.0); THB 13.8 g/dL (11.5-17.4); pH(98.6) 7.53 (7.35-7.45)
[2019-02-18 05:01] LABS: MODALITY VENTIMASK
[2019-02-18] MEDS: ZOSYN 3.375 GM in NS 50 ML IV SCH ×4 (06:05→22:06)
[2019-02-18 06:41] LABS: RBC 4.35 XMIL (4.2-5.4); WBC 11.04 X1000 (4.8-10.8)
[2019-02-18 06:42] LABS: HEMATOCRIT 38.5 % (37.0-47.0); HEMOGLOBIN 13.1 g/dL (12.0-16.0); MCH 30.1 PG (27-31); MCV 88.5 FL (81-99); RDW 13.8 % (11.5-14.5)
[2019-02-18 07:19] LABS: AGAP 16; BUN 21 mg/dL (8-22); CALCIUM 9.1 mg/dL (8.8-10.2); CHLORIDE 86 mmol/L (98-107); COSMO 273; CREATININE 0.6 mg/dL (0.5-0.9); ESTIMATED GFR > 60; GLUCOSE 100 mg/dL (70-104); PHOSPHORUS 3.2 mg/dL (2.7-4.5); POTASSIUM 2.8 mmol/L (3.5-5.1); SODIUM 135 mmol/L (136-145); TCO2 33 mmol/L (25-35)
--- NOTE | 2019-02-18 07:54 | Diag Imaging Result Doc PS360 ---
EXAM: CHEST-PORTABLE INDICATION: vent TECHNIQUE: One view COMPARISON: 02/17/2019 FINDINGS: There is better inspiration as compared to the previous study. There are persistent bilateral infiltrates. However, there has been significant improvement in the atelectasis and/or infiltrate at the lung bases. No new consolidation is identified. Cardiac silhouette is stable. IMPRESSION: Interval improvement. Electronically signed by Carl Campos 02/18/2019 7:52 AM
--- NOTE | 2019-02-18 08:01 | EKG Report ---
Test Performed on : 02/18/2019 07:16:02 AM Test Reason : Prolonged QTc. Please page MD if QTc>500.Thanks Blood Pressure : / mmHG Vent. Rate : 068 BPM Atrial Rate : 068 BPM P-R Int : 152 ms QRS Dur : 092 ms QT Int : 480 ms P-R-T Axes : 041 013 029 degrees QTc Int : 510 ms Normal sinus rhythm. Possible Left atrial enlargement Left ventricular hypertrophy Prolonged QT Abnormal ECG When compared with ECG of 17-FEB-2019 16:00, (Unconfirmed) No significant change was found Confirmed by Dimas MCKEON, Prashant Davison ([id number]) on 02/19/2019 10:19:40 AM
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
[2019-02-18] MEDS ORDERED: POTASSIUM CHLORIDE 60 MEQ in NS 500 ML IV ONE (09:39)
[2019-02-18] MEDS: PROTONIX IV SCH (10:04)
[2019-02-18] MEDS: HALDOL IV PRN ×3 (10:05→22:41)
--- NOTE | 2019-02-18 10:22 | PROVIDER PROGRESS NOTE ---
Progress Note Dr. Hernandez Progress Note/Pulmonary and or critical care We appreciated progress of care, Complications, change in diagnosis, and instructions to patient under direct supervision of Dr. Hernandez. Subjective: We note the level of consciousness, bed (chair) position, family presence (if any), level of lethargy, feeling of symptoms, and changes from baseline condition/symptom. The patient is on venturi mask 40% and tolerates well. She is a little bit drowsy. She c/o right sided chest pain, worsening with cough. She is having diarrhea at this time. WBC elevated this am, but no fever episode noted. Objective: Vital Signs: We reviewed EMR current values for Pulse rate, Blood pressure, Pulse rate, respiratory rate and Pulse oximetry. Also noted other values and trends if present (e.g. I/O, CVP). Vital Signs 02/17/19 16:00 02/17/19 16:15 02/17/19 16:30 Temperature 98.5 F Pulse Rate 73 71 76 Respiratory Rate 21 27 H 20 Blood Pressure 112/68 105/66 118/72 O2 Sat by Pulse Oximetry 97 95 96 02/17/19 16:45 02/17/19 17:00 02/17/19 17:15 Temperature Pulse Rate 71 77 71 Respiratory Rate 30 H 27 H 20 Blood Pressure 108/79 123/79 116/71 O2 Sat by Pulse Oximetry 93 L 91 L 93 L 02/17/19 17:30 02/17/19 17:45 02/17/19 18:00 Temperature Pulse Rate 72 71 71 Respiratory Rate 19 17 29 H Blood Pressure 122/74 127/73 121/75 O2 Sat by Pulse Oximetry 92 L 96 96 02/17/19 18:15 02/17/19 18:31 02/17/19 18:45 Temperature Pulse Rate 74 68 71 Respiratory Rate 22 20 18 Blood Pressure 116/71 114/63 116/75 O2 Sat by Pulse Oximetry 93 L 100 94 L 02/17/19 19:00 02/17/19 19:15 02/17/19 19:30 Temperature Pulse Rate 71 68 73 Respiratory Rate 27 H 27 H 14 Blood Pressure 120/74 111/67 121/74 O2 Sat by Pulse Oximetry 95 96 95 02/17/19 19:38 02/17/19 19:45 02/17/19 19:50 Temperature 98.3 F Pulse Rate 67 73 71 Respiratory Rate 14 27 H 22 Blood Pressure 121/74 102/73 102/73 O2 Sat by Pulse Oximetry 95 96 97 02/17/19 20:00 02/17/19 20:08 02/17/19 20:15 Temperature Pulse Rate 69 71 Respiratory Rate 17 17 Blood Pressure 118/67 116/70 O2 Sat by Pulse Oximetry 96 97 95 02/17/19 20:30 02/17/19 20:45 02/17/19 21:01 Temperature Pulse Rate 80 73 Respiratory Rate 19 31 H Blood Pressure 84/64 115/56 112/79 O2 Sat by Pulse Oximetry 99 02/17/19 21:16 02/17/19 21:18 02/17/19 21:30 Temperature Pulse Rate 71 70 71 Respiratory Rate 20 25 H 21 Blood Pressure 77/62 115/68 114/74 O2 Sat by Pulse Oximetry 97 97 96 02/17/19 21:45 02/17/19 22:00 02/17/19 22:15 Temperature Pulse Rate 74 69 71 Respiratory Rate 15 17 32 H Blood Pressure 125/72 111/67 105/70 O2 Sat by Pulse Oximetry 94 L 97 97 02/17/19 22:30 02/17/19 22:46 02/17/19 23:00 Temperature Pulse Rate 73 73 73 Respiratory Rate 24 17 26 H Blood Pressure 114/81 117/66 110/67 O2 Sat by Pulse Oximetry 92 L 97 93 L 02/17/19 23:15 02/17/19 23:30 02/17/19 23:45 Temperature Pulse Rate 77 64 57 L Respiratory Rate 23 25 H 21 Blood Pressure 121/64 111/70 139/79 O2 Sat by Pulse Oximetry 94 L 95 100 02/18/19 00:00 02/18/19 00:15 02/18/19 00:30 Temperature Pulse Rate 69 74 Respiratory Rate 28 H 26 H Blood Pressure 113/74 110/70 109/68 O2 Sat by Pulse Oximetry 98 94 L 94 L 02/18/19 00:37 02/18/19 01:00 02/18/19 01:30 Temperature 97.7 F Pulse Rate 70 65 72 Respiratory Rate 24 19 24 Blood Pressure 109/68 119/76 131/74 O2 Sat by Pulse Oximetry 96 97 96 02/18/19 02:00 02/18/19 02:30 02/18/19 03:00 Temperature Pulse Rate 69 71 67 Respiratory Rate 32 H 28 H 32 H Blood Pressure 110/69 124/80 113/63 O2 Sat by Pulse Oximetry 94 L 92 L 92 L 02/18/19 03:31 02/18/19 04:00 02/18/19 04:30 Temperature 97.8 F Pulse Rate 75 70 70 Respiratory Rate 20 24 22 Blood Pressure 120/59 101/69 117/56 O2 Sat by Pulse Oximetry 95 94 L 94 L 02/18/19 05:00 02/18/19 05:30 02/18/19 06:00 Temperature Pulse Rate 69 62 68 Respiratory Rate 19 25 H 19 Blood Pressure 138/82 127/77 120/74 O2 Sat by Pulse Oximetry 97 98 98 02/18/19 06:30 02/18/19 06:31 02/18/19 06:45 Temperature Pulse Rate 67 73 68 Respiratory Rate 29 H 13 18 Blood Pressure 120/68 O2 Sat by Pulse Oximetry 95 96 96 02/18/19 07:00 02/18/19 07:20 02/18/19 07:31 Temperature 98.1 F Pulse Rate 67 61 68 Respiratory Rate 13 22 15 Blood Pressure 117/68 117/68 143/87 O2 Sat by Pulse Oximetry 96 96 100 02/18/19 08:00 02/18/19 08:30 02/18/19 08:52 Temperature Pulse Rate 70 64 Respiratory Rate 17 23 Blood Pressure 122/80 120/70 O2 Sat by Pulse Oximetry 97 97 98 02/18/19 09:00 02/18/19 09:30 02/18/19 10:00 Temperature Pulse Rate 64 67 68 Respiratory Rate 20 24 27 H Blood Pressure 132/69 122/79 118/63 O2 Sat by Pulse Oximetry 99 95 95 02/18/19 10:30 02/18/19 11:00 02/18/19 11:30 Temperature Pulse Rate 65 68 67 Respiratory Rate 27 H 14 26 H Blood Pressure 107/62 110/70 114/71 O2 Sat by Pulse Oximetry 94 L 96 97 02/18/19 11:39 02/18/19 12:00 02/18/19 12:31 Temperature 97.6 F Pulse Rate 64 72 69 Respiratory Rate 18 26 H 17 Blood Pressure 110/70 126/81 112/62 O2 Sat by Pulse Oximetry 96 97 97 02/18/19 13:00 02/18/19 13:30 02/18/19 14:00 Temperature Pulse Rate 67 72 64 Respiratory Rate 25 H 21 21 Blood Pressure 105/74 106/70 116/74 O2 Sat by Pulse Oximetry 95 95 96 02/18/19 14:30 02/18/19 15:01 02/18/19 15:30 Temperature Pulse Rate 64 66 65 Respiratory Rate 26 H 20 22 Blood Pressure 110/84 122/85 124/80 O2 Sat by Pulse Oximetry 96 97 98 02/18/19 15:47 Temperature 97.2 F L Pulse Rate 66 Respiratory Rate 20 Blood Pressure 122/85 O2 Sat by Pulse Oximetry 97 Intake & Output 02/17/19 02/18/19 02/18/19 19:59 07:59 19:59 Intake Total 830 / 2340 1510 / 2340 1160 / 1160 Output Total 1650 / 2570 920 / 2570 340 / 340 Balance -820 / -230 590 / -230 820 / 820 Intake: Intake, IVPB 350 / 500 150 / 500 300 / 300 Intake, IV Electrolyte Infusion 500 / 500 Intake, Oral Amount 480 / 1840 1360 / 1840 360 / 360 Output: Output, Urine Lopez Amount 1650 / 2570 920 / 2570 340 / 340 Other: Percent of Meal Consumed Bites Only 25% Number of Bowel Movements 3 1 Bowel Movement Color and Soft Liquid Character Brown Brown Physical Examination: General: Chronically ill appearing. Lying in bed with no acute distress noted. HEENT: Trachea midline. Mucus pink and moist. Chest: Even and unlabored. Symmetrical excursion. Auscultation reveals diminished breathing sounds bilaterally and early inspiratory crackles bibasilarly. CVS: Regular rate and rhythm. Abdomen: Soft. Nontender. Bowel sounds present. Nondistended. Extremities: No pedal edema. Neuro: Alert. Weakness present. Speech fluent. Follow simple commands. Labs and Radiology: Reviewed available labs and radiology values available at time of EMR review. Laboratory Results 02/18/19 02/18/19 02/18/19 04:50 05:00 05:00 WBC RBC Hgb Hct MCV MCH MCHC RDW Std Deviation Plt Count MPV Specimen Type ARTERIAL Sample Site R RADIAL pH 7.53 H pCO2 48 H pO2 96 HCO3 36.7 H Base Excess 15.2 H Oxyhemoglobin 96.1 ABG O2 Sat (Calculated) 18.7 ABG O2 Saturation 96.3 ABG Carboxyhemoglobin 0.20 ABG Methemoglobin 0.0 Angel Test YES A-a O2 Difference 129.0 Total Hemoglobin 13.8 Lactate 1.10 Liter Flow 15.0 Blood Gas Modality VENTIMASK FiO2 % 40.0 Sodium 135 L Potassium 2.8 L D Chloride 86 L Carbon Dioxide 33 Anion Gap 16 BUN 21 Creatinine 0.6 Estimated GFR/1.73 m2 > 60 BUN/Creatinine Ratio 35 Glucose 100 Calculated Osmolality 273 Calcium 9.1 Phosphorus 3.2 Magnesium 2.2 02/18/19 05:00 WBC 11.04 H RBC 4.35 Hgb 13.1 Hct 38.5 MCV 88.5 MCH 30.1 MCHC 34.0 RDW Std Deviation 13.8 Plt Count 286 MPV 10.0 Specimen Type Sample Site pH pCO2 pO2 HCO3 Base Excess Oxyhemoglobin ABG O2 Sat (Calculated) ABG O2 Saturation ABG Carboxyhemoglobin ABG Methemoglobin Angel Test A-a O2 Difference Total Hemoglobin Lactate Liter Flow Blood Gas Modality FiO2 % Sodium Potassium Chloride Carbon Dioxide Anion Gap BUN Creatinine Estimated GFR/1.73 m2 BUN/Creatinine Ratio Glucose Calculated Osmolality Calcium Phosphorus Magnesium Dr. Hernandez evaluated and additional note below. Evaluation time in minutes: 32 minutes. Assessment: Acute respiratory failure. Improved. Pulmonary edema, elevated proBNP (improved), reduced right ventricular systolic function and pulmonary hypertension. Pneumonia, b/l multifocal with atelectasis and small right pleural effusion. Septic shock. Improved. Plan: Continue current treatment and supportive care per admitting and other teams on the case. Antibiotics. Encourage incentive spirometer, deep breathing, and cough. Appropriate DVT and GI prophylaxis. Input was appreciated from Admitting MD and other teams on the case. See additional notes by Dr. Hernandez.
[2019-02-18] MEDS ORDERED: CLINIMIX E 4.25%-5% SOLUTION 1,000 ML IV SCH (11:00)
[2019-02-18] MEDS: VANCOMYCIN 1,200 MG in NS 250 ML IV SCH (11:17)
[2019-02-18] MEDS: MOTRIN PO PRN (11:19)
[2019-02-18] MEDS: LIDODERM TOP SCH (11:36)
--- NOTE | 2019-02-18 21:44 | PROGRESS NOTE ---
DATE: 02/18/2019 SUBJECTIVE: The patient is resting comfortably in bed. She is awake, but her speech is garbled. OBJECTIVE: Vital Signs: Temperature 98.6 degrees, blood pressure 127/76, heart rate 72, respirations 18, O2 saturation 95% on Venturi mask. General: This is a chronically ill-appearing elderly female sitting up in bed in no acute distress. Heart: S1, S2. Normal. Lungs: Equal air entry bilaterally. Diminished breath sounds at the bases. Abdomen: Positive bowel sounds. Soft, nontender, nondistended. Extremities: No edema, no cyanosis. Neurologic: The patient is alert and oriented to person and place. She is able to move all 4 extremities. LABORATORY DATA: White blood cell count 11, hemoglobin 13, hematocrit 38, platelets 286,000, sodium 135, potassium 2.8, chloride 86, CO2 33, BUN 21, creatinine 0.6, glucose 100, magnesium 2.2. IMAGING: Chest x-ray shows interval improvement. ASSESSMENT AND PLAN: 1. Acute hypercapnic and hypoxemic respiratory failure. Multifactorial. The patient has bilateral lobe pneumonia and pulmonary edema. We will continue to treat the underlying medical issues. 2. Bilateral lobe pneumonia. Continue with broad-spectrum antibiotics, bronchodilator therapy and supplemental oxygen. 3. Acute pulmonary edema. Slowly improving. The patient is currently on diuretic therapy. 4. Hypokalemia. We will replace the patient's potassium. 5. Bipolar disorder. Aware. 6. Gastrointestinal prophylaxis. Continue on Protonix. 7. Deep vein thrombosis prophylaxis. Continue on Lovenox. cc: Yumiko Yun MD [facility]
[2019-02-18] MEDS: LASIX IV SCH ×2 (21:58→22:07)
[2019-02-18] MEDS: LOVENOX SUBQ SCH (22:07)
[2019-02-18] MEDS: TYLENOL NG PRN (22:07)
[2019-02-19] MEDS: AMBIEN PO PRN ×2 (00:38→22:02)
[2019-02-19] MEDS: ZOSYN 3.375 GM in NS 50 ML IV SCH ×4 (04:44→22:01)
[2019-02-19 04:50] LABS: ALLEN TEST YES; BE 10.9 mmoll (-3.0-3.0); BLOOD TYPE ARTERIAL; HCO3-(ACT) 33.4 mmoll (20.0-26.0); METHB 0.2 % (0.0-1.5); MODALITY VENTIMASK; O2(CT) 19.1 mL/dL (15.0-23.0); PCO2(98.6) 50 mmHg (35-45); PO2(98.6) 94 mmHg (60-100); SAMPLE BLOOD; SAO2 96.4 % (95.0-100.0); THB 14.1 g/dL (11.5-17.4); pH(98.6) 7.47 (7.35-7.45)
[2019-02-19 06:24] LABS: HEMATOCRIT 38.4 % (37.0-47.0); MCH 30.3 PG (27-31); MCHC 33.9 g/dL (33-37); MCV 89.5 FL (81-99); MPV 10.4 FL (7.4-10.4); RBC 4.29 XMIL (4.2-5.4); RDW 13.9 % (11.5-14.5); WBC 13.32 X1000 (4.8-10.8)
[2019-02-19 06:45] LABS: AGAP 10; ALB/GLOB RATIO 0.7; ALBUMIN 3.1 g/dL (3.5-5.0); ALKALINE PHOSPHATASE 79 U/L (32-104); BUN 14 mg/dL (8-22); CALCIUM 9.1 mg/dL (8.8-10.2); CHLORIDE 91 mmol/L (98-107); COSMO 268; CREATININE 0.5 mg/dL (0.5-0.9); ESTIMATED GFR > 60; GLUCOSE 113 mg/dL (70-104); GOT 24 U/L (10-30); GPT 20 U/L (10-36); PHOSPHORUS 2.6 mg/dL (2.7-4.5); POTASSIUM 3.3 mmol/L (3.5-5.1); SODIUM 133 mmol/L (136-145); TCO2 32 mmol/L (25-35); TOTAL PROTEIN 7.3 g/dL (6.3-8.3)
--- NOTE | 2019-02-19 07:10 | Diag Imaging Result Doc PS360 ---
EXAM: CHEST-1 VIEW 02/19/2019 HISTORY: pneumonia TECHNIQUE: AP portable at 0603 COMMENT: Compared to 02/18/2019 there is improvement in the interstitial pulmonary edema particularly over the lingula. IMPRESSION: Improved pulmonary edema. Electronically signed by Irving Prado 02/19/2019 7:07 AM
[2019-02-19] MEDS ORDERED: POTASSIUM PHOSPHATE 30 MMOL in NS 250 ML IV ONE (07:20)
[2019-02-19] MEDS: TYLENOL NG PRN ×2 (09:02→22:01)
[2019-02-19] MEDS: PROTONIX IV SCH (09:36)
[2019-02-19] MEDS: VANCOMYCIN 1,600 MG in NS 250 ML IV SCH (09:36)
--- NOTE | 2019-02-19 10:40 | PROVIDER PROGRESS NOTE ---
Progress Note Dr. Hernandez Progress Note/Pulmonary and or critical care We appreciated progress of care, Complications, change in diagnosis, and instructions to patient under direct supervision of Dr. Hernandez. Subjective: We note the level of consciousness, bed (chair) position, family presence (if any), level of lethargy, feeling of symptoms, and changes from baseline condition/symptom. The patient is on NC 6L and tolerates well. She is a little bit drowsy. WBC continuously elevated this am, but no fever episode noted. She states she is feeling better. The PT is standing by. Objective: Vital Signs: We reviewed EMR current values for Pulse rate, Blood pressure, Pulse rate, respiratory rate and Pulse oximetry. Also noted other values and trends if present (e.g. I/O, CVP). Vital Signs 02/18/19 14:30 02/18/19 15:01 02/18/19 15:30 Temperature Pulse Rate 64 66 65 Respiratory Rate 26 H 20 22 Blood Pressure 110/84 122/85 124/80 O2 Sat by Pulse Oximetry 96 97 98 02/18/19 15:47 02/18/19 16:01 02/18/19 16:30 Temperature 97.2 F L Pulse Rate 66 73 66 Respiratory Rate 20 18 15 Blood Pressure 122/85 118/89 120/81 O2 Sat by Pulse Oximetry 97 96 98 02/18/19 16:59 02/18/19 17:00 02/18/19 17:31 Temperature Pulse Rate 67 69 57 L Respiratory Rate 17 19 Blood Pressure 105/74 104/73 127/76 O2 Sat by Pulse Oximetry 97 100 02/18/19 18:00 02/18/19 18:30 02/18/19 19:00 Temperature Pulse Rate 72 69 69 Respiratory Rate 14 16 26 H Blood Pressure 105/68 115/81 110/79 O2 Sat by Pulse Oximetry 95 95 94 L 02/18/19 19:10 02/18/19 19:30 02/18/19 19:39 Temperature 97.0 F L Pulse Rate 68 63 Respiratory Rate 18 18 Blood Pressure 133/84 133/84 O2 Sat by Pulse Oximetry 96 96 96 02/18/19 20:00 02/18/19 20:01 02/18/19 20:30 Temperature Pulse Rate 63 63 64 Respiratory Rate 29 H 21 23 Blood Pressure 116/80 119/76 O2 Sat by Pulse Oximetry 97 96 96 02/18/19 21:00 02/18/19 21:30 02/18/19 22:01 Temperature Pulse Rate 65 69 74 Respiratory Rate 27 H 26 H 19 Blood Pressure 116/75 131/74 141/62 O2 Sat by Pulse Oximetry 94 L 91 L 95 02/18/19 22:30 02/18/19 23:00 02/18/19 23:45 Temperature Pulse Rate 67 82 71 Respiratory Rate 31 H 15 13 Blood Pressure 145/92 129/92 116/95 O2 Sat by Pulse Oximetry 97 97 93 L 02/19/19 00:00 02/19/19 00:31 02/19/19 01:00 Temperature 97.7 F Pulse Rate 71 73 56 L Respiratory Rate 16 18 Blood Pressure 177/70 127/64 121/73 O2 Sat by Pulse Oximetry 96 95 100 02/19/19 01:30 02/19/19 02:00 02/19/19 03:00 Temperature Pulse Rate 61 61 61 Respiratory Rate 19 Blood Pressure 122/69 117/70 117/68 O2 Sat by Pulse Oximetry 98 96 98 02/19/19 04:00 02/19/19 04:53 02/19/19 05:00 Temperature 97.7 F Pulse Rate 62 69 70 Respiratory Rate 24 23 21 Blood Pressure 104/60 104/60 112/63 O2 Sat by Pulse Oximetry 92 L 95 95 02/19/19 06:00 02/19/19 07:00 02/19/19 07:23 Temperature 97.2 F L Pulse Rate 61 57 L 72 Respiratory Rate 23 19 20 Blood Pressure 107/67 133/69 133/69 O2 Sat by Pulse Oximetry 98 100 100 02/19/19 08:00 02/19/19 08:25 02/19/19 09:00 Temperature Pulse Rate 68 83 79 Respiratory Rate 23 23 20 Blood Pressure 117/70 117/70 120/72 O2 Sat by Pulse Oximetry 97 97 95 02/19/19 09:46 02/19/19 10:01 02/19/19 11:01 Temperature Pulse Rate 67 70 Respiratory Rate 23 18 Blood Pressure 118/75 105/71 O2 Sat by Pulse Oximetry 96 96 02/19/19 11:19 02/19/19 12:01 02/19/19 13:01 Temperature 97.3 F L Pulse Rate 70 70 76 Respiratory Rate 18 19 17 Blood Pressure 105/71 107/68 121/73 O2 Sat by Pulse Oximetry 96 98 97 02/19/19 14:01 Temperature Pulse Rate 68 Respiratory Rate 27 H Blood Pressure 112/75 O2 Sat by Pulse Oximetry 99 Intake & Output 02/18/19 02/19/19 02/19/19 19:59 07:59 19:59 Intake Total 1160 / 1750 590 / 1750 980 / 980 Output Total 340 / 1540 1200 / 1540 240 / 240 Balance 820 / 210 -610 / 210 740 / 740 Intake: Intake, IVPB 300 / 450 150 / 450 250 / 250 Intake, IV Electrolyte Infusion 500 / 500 250 / 250 Intake, Oral Amount 360 / 800 440 / 800 480 / 480 Output: Output, Urine Lopez Amount 340 / 1540 1200 / 1540 240 / 240 Other: Percent of Meal Consumed 25% 25% Number of Bowel Movements 1 2 1 Bowel Movement Color and Liquid Soft Liquid Character Brown Brown Brown Physical Examination: General: Chronically ill appearing. Lying in bed with no acute distress noted. HEENT: Trachea midline. Mucus pink and dry. Chest: Even and unlabored. Symmetrical excursion. Auscultation reveals diminished breathing sounds bilaterally and early inspiratory crackles bibasilarly. CVS: Regular rate and rhythm. Abdomen: Soft. Nontender. Bowel sounds present. Nondistended. Extremities: No pedal edema. Neuro: Alert. Weakness present. Speech fluent. Follow simple commands. Labs and Radiology: Reviewed available labs and radiology values available at time of EMR review. Laboratory Results 02/19/19 02/19/19 02/19/19 04:20 04:27 04:27 WBC RBC Hgb Hct MCV MCH MCHC RDW Std Deviation Plt Count MPV Specimen Type ARTERIAL Sample Site R RADIAL pH 7.47 H pCO2 50 H pO2 94 HCO3 33.4 H Base Excess 10.9 H Oxyhemoglobin 96.0 ABG O2 Sat (Calculated) 19.1 ABG O2 Saturation 96.4 ABG Carboxyhemoglobin 0.20 ABG Methemoglobin 0.2 Angel Test YES A-a O2 Difference 129.0 Total Hemoglobin 14.1 Lactate 1.10 Blood Gas Modality VENTIMASK FiO2 % 40.0 Sodium 133 L Potassium 3.3 L D Chloride 91 L Carbon Dioxide 32 Anion Gap 10 BUN 14 Creatinine 0.5 Estimated GFR/1.73 m2 > 60 BUN/Creatinine Ratio 28 Glucose 113 H Calculated Osmolality 268 Calcium 9.1 Phosphorus 2.6 L Magnesium 2.0 Total Bilirubin 0.30 Direct Bilirubin 0.10 AST 24 ALT 20 Alkaline Phosphatase 79 [id number] Pept Total Protein 7.3 Albumin 3.1 L Globulin 4.2 Albumin/Globulin Ratio 0.7 Random Vancomycin 02/19/19 02/19/19 02/19/19 04:27 04:27 04:27 WBC 13.32 H RBC 4.29 Hgb 13.0 Hct 38.4 MCV 89.5 MCH 30.3 MCHC 33.9 RDW Std Deviation 13.9 Plt Count 297 MPV 10.4 Specimen Type Sample Site pH pCO2 pO2 HCO3 Base Excess Oxyhemoglobin ABG O2 Sat (Calculated) ABG O2 Saturation ABG Carboxyhemoglobin ABG Methemoglobin Angel Test A-a O2 Difference Total Hemoglobin Lactate Blood Gas Modality FiO2 % Sodium Potassium Chloride Carbon Dioxide Anion Gap BUN Creatinine Estimated GFR/1.73 m2 BUN/Creatinine Ratio Glucose Calculated Osmolality Calcium Phosphorus Magnesium Total Bilirubin Direct Bilirubin AST ALT Alkaline Phosphatase [id number] Pept 658 H Total Protein Albumin Globulin Albumin/Globulin Ratio Random Vancomycin 6.70 Dr. Hernandez evaluated and additional note below. Evaluation time in minutes: 33 minutes. Assessment: Acute respiratory failure. Improved. Pulmonary edema (improving), elevated proBNP, reduced right ventricular systolic function and pulmonary hypertension. Pneumonia, b/l multifocal with atelectasis (improving) and small right pleural effusion. Septic shock. Improved. Plan: Continue current treatment and supportive care per admitting and other teams on the case. Antibiotics. Encourage incentive spirometer, deep breathing, and cough. Appropriate DVT and GI prophylaxis. Input was appreciated from Admitting MD and other teams on the case. See additional notes by Dr. Hernandez.
--- NOTE | 2019-02-19 10:43 | PROVIDER PROGRESS NOTE ---
Progress Note Pulmonary additional note: I have seen and examine the case, reviewed the EMR, labs, latest images and other medical teams notes. Also reviewed the LOCKSTITCH MACHINE OPERATOR notes and signed necessary form(s). I have noted changes in condition if any from yesterday and did orders. Please see also signed progress sheet. Prognosis: Guarded for now. Since yesterday, She remains stable with satisfactory oxygenation. CXR improving and afebrile I reviewed notes from Dr. Yun Respiratory failure is better, will DC daily ABG. K was supplied. PT to see. Pneumonia, pulmonary edema and OD. I asked cleaning staff supervisor about condition changes and if they have any needs in regard to today conditions. I spent 34 minutes in this process.
[2019-02-19] MEDS: LIDODERM TOP SCH (13:17)
[2019-02-19] MEDS: LASIX IV SCH (17:00)
[2019-02-19] MEDS: LOVENOX SUBQ SCH (17:00)
[2019-02-19] MEDS ORDERED: CALAMINE LOTION TOP PRN (22:35)
[2019-02-19] MEDS ORDERED: CALMOSEPTINE OINTMENT TOP PRN (23:17)
[2019-02-20] MEDS ORDERED: POTASSIUM CHLORIDE 20% LIQUID PO ONE (01:22)
--- NOTE | 2019-02-20 03:50 | PROGRESS NOTE ---
DATE: 02/19/2019 SUBJECTIVE: The patient is more awake and alert today. She states that she feels a lot better. OBJECTIVE: Vital Signs: Temperature 97.2 degrees, blood pressure 138/78, heart rate 69, respirations 21, O2 saturations 100% on 3 L nasal cannula, intake 1.7 L, output 1.5 L. General: This is a chronically ill-appearing, elderly female lying in bed in no acute distress. Heart: S1, S2 normal. Regular rate and rhythm. Lungs: Equal air entry bilaterally. No wheezing. No rales. Abdomen: Positive bowel sounds. Soft, nontender, nondistended. Extremities: No edema. No cyanosis. Neurologic: The patient is alert and oriented x3. LABORATORY DATA: White blood cell count 13, hemoglobin 13, hematocrit 38, platelets 297,000. Sodium 133, potassium 3.3, chloride 91, CO2 32, BUN 14, creatinine 0.5, glucose 113, phosphorus 2.6. ProBNP 658. Chest x-ray shows improved pulmonary edema. ASSESSMENT AND PLAN: 1. Acute hypercapnic and hypoxemic respiratory failure. Continue to treat the underlying lung conditions. 2. Bilateral lobe pneumonia, slowly improving. Continue on broad-spectrum antibiotics, bronchodilator therapy, and supplemental oxygen. 3. Acute pulmonary edema. Improved. Continue with diuretic therapy. 4. Hypokalemia. Will replace the patient's potassium. 5. Bipolar disorder. Aware. 6. Gastrointestinal prophylaxis. Continue on Protonix. 7. Deep vein thrombosis prophylaxis. Continue on Lovenox. 8. Disposition. Will transfer the patient to the medical floor. Physical therapy has been consulted. cc: Yumiko Yun MD
[2019-02-20] MEDS: ZOSYN 3.375 GM in NS 50 ML IV SCH ×4 (04:14→21:35)
[2019-02-20] MEDS: VANCOMYCIN 1,600 MG in NS 250 ML IV SCH ×2 (04:15→22:20)
[2019-02-20 04:51] LABS: ALLEN TEST YES; BE 10.9 mmoll (-3.0-3.0); BLOOD TYPE ARTERIAL; HCO3-(ACT) 33.4 mmoll (20.0-26.0); METHB 0.4 % (0.0-1.5); O2(CT) 19.5 mL/dL (15.0-23.0); O2HB 96.2 % (95.0-99.0); PCO2(98.6) 50 mmHg (35-45); PO2(98.6) 114 mmHg (60-100); SAMPLE BLOOD; SAO2 96.6 % (95.0-100.0); THB 14.3 g/dL (11.5-17.4); pH(98.6) 7.47 (7.35-7.45)
[2019-02-20 04:52] LABS: MODALITY CANNULA
[2019-02-20 06:29] LABS: HEMATOCRIT 40.4 % (37.0-47.0); HEMOGLOBIN 13.2 g/dL (12.0-16.0); MCH 29.2 PG (27-31); MCHC 32.7 g/dL (33-37); MCV 89.4 FL (81-99); MPV 10.6 FL (7.4-10.4); RBC 4.52 XMIL (4.2-5.4); RDW 14.1 % (11.5-14.5); WBC 17.76 X1000 (4.8-10.8)
[2019-02-20 06:45] LABS: AGAP 11; BUN 14 mg/dL (8-22); CALCIUM 9.1 mg/dL (8.8-10.2); CHLORIDE 93 mmol/L (98-107); COSMO 274; CREATININE 0.5 mg/dL (0.5-0.9); ESTIMATED GFR > 60; GLUCOSE 102 mg/dL (70-104); MAGNESIUM 2.4 mg/dL (1.5-2.7); POTASSIUM 4.4 mmol/L (3.5-5.1); SODIUM 137 mmol/L (136-145); TCO2 33 mmol/L (25-35)
--- NOTE | 2019-02-20 07:40 | PROVIDER PROGRESS NOTE ---
Progress Note Pulmonary additional note: I have seen and examine the case, reviewed the EMR, labs, latest images and other medical teams notes. Also reviewed the DIRECTOR OF FUNDRAISING notes and signed necessary form(s). I have noted changes in condition if any from yesterday and did orders. Please see also signed progress sheet. Since yesterday, She is tolerating NC and gradually improving. I reviewed notes from Dr. Yun Respiratory failure is better, PT to see. Pneumonia, pulmonary edema and OD. Prognosis: Guarded for now. I asked chief of staff doctor about condition changes and if they have any needs in regard to today conditions. I spent 30 minutes in this process.
--- NOTE | 2019-02-20 09:10 | Diag Imaging Result Doc PS360 ---
EXAM: CHEST-1 VIEW 02/20/2019 HISTORY: pneumonia TECHNIQUE: AP portable at 0840 COMMENT: The inspiration is better than on 02/19/2019. The lungs appear to be clear. There are no additional abnormalities. IMPRESSION: No acute disease. Electronically signed by Irving Prado 02/20/2019 9:07 AM
[2019-02-20] MEDS: TYLENOL NG PRN ×2 (09:27→16:59)
[2019-02-20] MEDS: PROTONIX IV SCH (11:00)
[2019-02-20] MEDS: LIDODERM TOP SCH (11:37)
--- NOTE | 2019-02-20 12:22 | PROVIDER PROGRESS NOTE ---
Progress Note Dr. Hernandez Progress Note/Pulmonary and or critical care We appreciated progress of care, Complications, change in diagnosis, and instructions to patient under direct supervision of Dr. Hernandez. Subjective: We note the level of consciousness, bed (chair) position, family presence (if any), level of lethargy, feeling of symptoms, and changes from baseline condition/symptom. The patient is on NC 4L and tolerates well. She is having her lunch. WBC continuously elevated since 02/17/19, but no fever episode noted. She is not on steroid. She reports back pain, which is chronic, 2/2 RA. She denied constipation or diarrhea. She does have IBS, RA, and Hep C. Objective: Vital Signs: We reviewed EMR current values for Pulse rate, Blood pressure, Pulse rate, respiratory rate and Pulse oximetry. Also noted other values and trends if present (e.g. I/O, CVP). Vital Signs 02/19/19 18:01 02/19/19 19:01 02/19/19 20:00 Temperature 97.2 F L Pulse Rate 70 68 73 Respiratory Rate 22 19 16 Blood Pressure 112/71 142/78 142/78 O2 Sat by Pulse Oximetry 95 99 94 L 02/19/19 20:01 02/19/19 21:01 02/19/19 22:01 Temperature Pulse Rate 83 75 71 Respiratory Rate 26 H 23 20 Blood Pressure 107/70 116/72 112/73 O2 Sat by Pulse Oximetry 91 L 91 L 98 02/19/19 22:03 02/19/19 23:01 02/20/19 00:00 Temperature 97.9 F Pulse Rate 70 63 Respiratory Rate 15 18 Blood Pressure 124/74 128/73 O2 Sat by Pulse Oximetry 95 100 98 02/20/19 00:01 02/20/19 01:01 02/20/19 02:01 Temperature Pulse Rate 63 79 73 Respiratory Rate 18 18 26 H Blood Pressure 128/73 114/71 114/76 O2 Sat by Pulse Oximetry 98 97 95 02/20/19 03:01 02/20/19 03:56 02/20/19 04:02 Temperature 98.3 F Pulse Rate 74 64 58 L Respiratory Rate 17 24 27 H Blood Pressure 112/70 112/70 134/72 O2 Sat by Pulse Oximetry 96 100 99 02/20/19 05:01 02/20/19 06:01 02/20/19 06:02 Temperature Pulse Rate 57 L 62 65 Respiratory Rate 16 18 21 Blood Pressure 96/63 115/67 O2 Sat by Pulse Oximetry 98 97 97 02/20/19 06:57 02/20/19 06:59 02/20/19 07:00 Temperature Pulse Rate 60 54 L 65 Respiratory Rate 18 18 17 Blood Pressure 115/67 128/66 O2 Sat by Pulse Oximetry 98 99 99 02/20/19 08:00 02/20/19 08:01 02/20/19 09:00 Temperature 98 F Pulse Rate 73 73 67 Respiratory Rate 16 15 16 Blood Pressure 103/58 122/76 O2 Sat by Pulse Oximetry 95 95 94 L 02/20/19 09:59 02/20/19 10:00 02/20/19 10:59 Temperature Pulse Rate 73 77 81 Respiratory Rate 16 16 Blood Pressure 120/73 112/67 O2 Sat by Pulse Oximetry 97 96 95 02/20/19 11:00 02/20/19 12:00 02/20/19 12:01 Temperature 98.3 F Pulse Rate 83 70 66 Respiratory Rate 15 Blood Pressure 116/73 O2 Sat by Pulse Oximetry 96 94 L 97 02/20/19 12:59 02/20/19 13:59 02/20/19 14:00 Temperature Pulse Rate 67 63 63 Respiratory Rate 16 18 Blood Pressure 117/72 112/66 O2 Sat by Pulse Oximetry 99 98 98 02/20/19 14:59 Temperature Pulse Rate 56 L Respiratory Rate 17 Blood Pressure 131/70 O2 Sat by Pulse Oximetry 99 Intake & Output 02/19/19 02/20/19 02/20/19 19:59 07:59 19:59 Intake Total 980 / 2060 1080 / 2060 890 / 890 Output Total 2014 500 / 500 Balance 740 / 45 -695 / 45 390 / 390 Intake: Intake, IVPB 250 / 650 400 / 650 50 / 50 Intake, IV Electrolyte Infusion 250 / 250 Intake, Oral Amount 480 / 1160 680 / 1160 840 / 840 Output: Output, Urine Lopez Amount 2014 500 / 500 Other: Percent of Meal Consumed 25% Number of Bowel Movements 1 1 1 Bowel Movement Color and Liquid Soft Character Brown Brown Physical Examination: General: Chronically ill appearing. Having lunch with no acute distress noted. HEENT: Trachea midline. Mucus pink and slightly dry. Poor dentition. Chest: Even and unlabored. Symmetrical excursion. Auscultation reveals diminished breathing sounds bilaterally and mild inspiratory crackles bibasi larly. CVS: Regular rate and rhythm. Abdomen: Soft. Nontender. Bowel sounds present. Nondistended. Extremities: No pedal edema. Neuro: Alert. Weakness present. Speech fluent. Follow simple commands. Labs and Radiology: Reviewed available labs and radiology values available at time of EMR review. Laboratory Results 02/19/19 02/20/19 02/20/19 20:03 04:15 04:15 WBC 17.76 H RBC 4.52 Hgb 13.2 Hct 40.4 MCV 89.4 MCH 29.2 MCHC 32.7 L RDW Std Deviation 14.1 Plt Count 360 MPV 10.6 H Specimen Type Sample Site pH pCO2 pO2 HCO3 Base Excess Oxyhemoglobin ABG O2 Sat (Calculated) ABG O2 Saturation ABG Carboxyhemoglobin ABG Methemoglobin Angel Test A-a O2 Difference Total Hemoglobin Lactate Liter Flow Blood Gas Modality FiO2 % Sodium 137 Potassium 3.4 L 4.4 D Chloride 93 L Carbon Dioxide 33 Anion Gap 11 BUN 14 Creatinine 0.5 Estimated GFR/1.73 m2 > 60 BUN/Creatinine Ratio 28 Glucose 102 Calculated Osmolality 274 Calcium 9.1 Magnesium 2.4 02/20/19 04:43 WBC RBC Hgb Hct MCV MCH MCHC RDW Std Deviation Plt Count MPV Specimen Type ARTERIAL Sample Site R RADIAL pH 7.47 H pCO2 50 H pO2 114 H HCO3 33.4 H Base Excess 10.9 H Oxyhemoglobin 96.2 ABG O2 Sat (Calculated) 19.5 ABG O2 Saturation 96.6 ABG Carboxyhemoglobin 0.00 L ABG Methemoglobin 0.4 Angel Test YES A-a O2 Difference 80.0 Total Hemoglobin 14.3 Lactate 1.60 Liter Flow 4.0 Blood Gas Modality CANNULA FiO2 % 36.0 Sodium Potassium Chloride Carbon Dioxide Anion Gap BUN Creatinine Estimated GFR/1.73 m2 BUN/Creatinine Ratio Glucose Calculated Osmolality Calcium Magnesium Dr. Hernandez evaluated and additional note below. Evaluation time in minutes: 34 minutes. Assessment: Acute respiratory failure. Improved. Pulmonary edema, elevated proBNP, reduced right ventricular systolic function and pulmonary hypertension. Improved. Pneumonia, b/l multifocal with atelectasis and small right pleural effusion. Improving. Septic shock. Improved. Leukocytosis. Worsening. Plan: Continue current treatment and supportive care per admitting and other teams on the case. Antibiotics. Encourage incentive spirometer, deep breathing, and cough. Appropriate DVT and GI prophylaxis. Input was appreciated from Admitting MD and other teams on the case. See additional notes by Dr. Hernandez.
[2019-02-20] MEDS: LOVENOX SUBQ SCH (19:09)
[2019-02-20] MEDS: LASIX IV SCH (19:09)
[2019-02-20] MEDS: AMBIEN PO PRN (20:38)
[2019-02-20] MEDS: MOTRIN PO PRN (21:27)
--- NOTE | 2019-02-20 23:03 | PROGRESS NOTE ---
DATE: 02/20/2019 SUBJECTIVE: The patient is resting comfortably in bed. She states that she feels a lot better today. She reports that she is not on oxygen at home. OBJECTIVE: Vital signs: Temperature 98.7 degrees, blood pressure 136/82, heart rate 68, respirations 19, O2 saturation 96% on 4 L nasal cannula. General: This is a chronically ill- appearing elderly female lying comfortably in bed in no acute distress. Heart: S1, S2 normal, regular rate and rhythm. Lungs: Equal air entry bilaterally. No wheezing. No rales. Abdomen: Positive bowel sounds, soft, nontender, nondistended. Extremities: No edema, no cyanosis. Neurologic: The patient is alert and oriented x4. LABORATORIES: White blood cell count 17, hemoglobin 13, hematocrit 40, platelets 360,000. ABG: pH 7.47, pCO2 50, PO2 144, bicarb 33. Sodium 137, potassium 4.4, chloride 93, CO2 33, BUN 14, creatinine 0.5, glucose 102. IMAGING: Chest x-ray shows no acute disease. ASSESSMENT AND PLAN: 1. Acute hypercapnic and hypoxemic respiratory failure. We will continue to try and wean the patient off of supplemental oxygen. Her chest x-ray appears to be improved today. 2. Pneumonia. There is no evidence of pneumonia on today's chest x-ray, however the patient's white blood cell count has jumped to 17,000. We will continue on the current antibiotic regimen. We will also check a procalcitonin level. 3. Chronic obstructive pulmonary disease (COPD). Continue with bronchodilator therapy and supplemental oxygen. 4. Acute pulmonary edema. Resolved. 5. Bipolar disorder. Aware. 6. Leukocytosis. We will monitor closely for improvement. Continue with antibiotic therapy. 7. Gastrointestinal prophylaxis. Continue on Protonix. 8. Deep vein thrombosis prophylaxis. Continue on Lovenox. 9. Disposition. The patient will be transferred to the medical floor on telemetry. Physical therapy has been consulted. cc: Yumiko Yun MD
[2019-02-21] MEDS: ZOSYN 3.375 GM in NS 50 ML IV SCH ×2 (04:44→09:01)
[2019-02-21 06:52] LABS: BASO# 0.11 X1000 (0.0-0.2); BASO% 0.8 % (0.0-0.8); EOS# 0.61 X1000 (0.0-0.7); EOS% 4.4 % (0.0-10.0); HEMATOCRIT 40.2 % (37.0-47.0); HEMOGLOBIN 12.9 g/dL (12.0-16.0); IMM GRAN# 0.27 X1000 (0.0-0.04); IMM GRAN% 1.9 % (0.0-0.5); LYMPH# 3.67 X1000 (1.2-3.4); LYMPH% 26.4 % (20.5-51.1); MCH 29.3 PG (27-31); MCHC 32.1 g/dL (33-37); MCV 91.2 FL (81-99); MONO# 0.94 X1000 (0.11-0.59); MONO% 6.8 % (1.7-9.3); MPV 10.2 FL (7.4-10.4); NEUT# 8.32 X1000 (1.4-6.5); NEUT% 59.7 % (42.2-75.2); PLT 361 X1000 (130-400); RBC 4.41 XMIL (4.2-5.4); RDW 14.7 % (11.5-14.5); WBC 13.92 X1000 (4.8-10.8)
[2019-02-21 07:09] LABS: AGAP 11; BUN 16 mg/dL (8-22); CALCIUM 9.1 mg/dL (8.8-10.2); CHLORIDE 98 mmol/L (98-107); COSMO 279; CREATININE 0.6 mg/dL (0.5-0.9); ESTIMATED GFR > 60; GLUCOSE 106 mg/dL (70-104); POTASSIUM 4.1 mmol/L (3.5-5.1); SODIUM 139 mmol/L (136-145); TCO2 30 mmol/L (25-35)
[2019-02-21] MEDS: HALDOL IV PRN (09:13)
[2019-02-21] MEDS: MOTRIN PO PRN (09:14)
[2019-02-21] MEDS: PROTONIX IV SCH (11:01)
[2019-02-21 11:10] VITALS: BP 128/77
[2019-02-21] MEDS: LIDODERM TOP SCH (11:38)
--- NOTE | 2019-03-04 14:24 | DISCHARGE SUMMARY ---
ADMISSION DATE: 02/13/2019 DISCHARGE DATE: 02/21/2019 FINAL DISCHARGE DIAGNOSES: 1. Acute hypoxic hypercapnic and hypoxemic respiratory failure. 2. Pneumonia. 3. Chronic obstructive pulmonary disease. 4. Acute pulmonary edema. 5. Bipolar disorder. 6. Leukocytosis. CONSULTATIONS: 1. Cardiology consultation with Dr. Mcduffie. 2. Pulmonary consultation with Dr. Hernandez. HOSPITAL COURSE: Ms. Mendez is a 53-year-old female with a history of multiple medical problems who was initially brought to the ER after the patient was found minimally responsive. The patient was brought to the ER and intubated and placed on the ventilator in the ER. A chest x-ray was done that revealed pneumonia. The patient was then admitted to the ICU. The patient had a drug toxicology screen done that showed benzodiazepine and amphetamines. Pulmonology and Cardiology were consulted for further assistance with management. The patient was also noted to have pulmonary edema on the x-ray. Blood cultures and sputum cultures were obtained. The patient was started on broad-spectrum antibiotics and fluids initially. The patient had an echocardiogram done that revealed an EF of 65%, as well as grade 1 diastolic dysfunction. A pulmonary arteriogram was done that revealed pulmonary edema and pneumonia. The patient was treated for both of these entities and slowly improved. Eventually the patient was extubated. She was then transferred to the medical floor where she was weaned off of supplemental oxygen. The patient continued to improve clinically and was seen by physical therapy. Ultimately, the patient was cleared for discharge home on 02/21/2019. DISCHARGE MEDICATIONS: 1. Advair 250/50 one puff inhaled twice a day. 2. Augmentin 875/125 one tablet oral twice a day x5 days. 3. DuoNeb 3 mL inhaled every 6 hours p.r.n. for shortness of breath. 4. Albuterol inhaler 2 puffs inhaled every 6 hours p.r.n. 5. Lactobacillus 1 tablet oral daily. DISCHARGE DIET: Low-sodium low-cholesterol diet. ACTIVITY: As tolerated. FOLLOWUP INSTRUCTIONS: The patient will need to follow up with Dr. Hernandez as scheduled by his clinic. The patient will need to follow up with Dr. Lei Mcduffie in 2 weeks. cc: Yumiko Yun MD
== END 2019-02-21 13:00 | disposition home or self-care (01) | DRG 208 ==
LOC: ED 16:28 → ICU 21:46 → SUATTDRO 21:46 → 4N 02-20 19:55
PROVIDERS: ATTEND Internal Medicine